=== PATIENT | male | born 1940 | race Caucasian/White ===

== ENCOUNTER → 2022-07-12 | Outpatient (CLI) | payer MEDICARE, OTHER | END | disposition home or self-care (01) | LOC: Rad HDHVI 09:52 | PROVIDERS: ATTEND Internal Medicine Cardiovascular Disease | DX: I08.3 Combined rheumatic disorders of mitral, aortic and tricuspid valves (principal); I10 Essential (primary) hypertension; R06.02 Shortness of breath | CPT/HCPCS: 93306 ==

== ENCOUNTER → 2022-08-19 | Outpatient (CLI) | payer MEDICARE, OTHER ==
[~2022-08-19] VITALS: Ht 172.7 cm; Wt 73.5 kg
[~2022-08-19] MED LIST: ADENOSINE 62 MG in GIVE UN-DILUTED 0 ML IV ONE; ADENOSINE 90 MG/30 ML INJ IV ONE
== END | disposition home or self-care (01) ==
LOC: Rad HDHVI 09:10
PROVIDERS: ATTEND Internal Medicine Cardiovascular Disease
DX: R00.1 Bradycardia, unspecified (principal); R07.89 Other chest pain; R06.02 Shortness of breath; I10 Essential (primary) hypertension; E11.9 Type 2 diabetes mellitus without complications; R42 Dizziness and giddiness; R53.83 Other fatigue; Z82.49 Family history of ischemic heart disease and other diseases of the circulatory system
CPT/HCPCS: 78452; 93005; 96374; 96375; A9500; J0153

== ENCOUNTER 2022-09-19 12:12 | Inpatient (IN) | payer MEDICARE, OTHER ==
[~2022-09-19] VITALS: Ht 167.6 cm; Wt 71.0 kg
[2022-09-19 12:56] LABS: Basophils # (auto) 0 10 ^3/uL (0-0.2); Basophils % (auto) 0.4 % (0.0-2.0); Eosinophils # (auto) 0.2 10 ^3/uL (0-0.8); Eosinophils % (auto) 2.3 % (0.0-7.0); Hemoglobin 15.3 g/dL (13.5-17.5); Lymphocytes % (auto) 19.7 % (10.0-50.0); Mean Corpuscular Hemoglobin 30.4 pg (28.0-32.0); Mean Corpuscular Hgb Conc. 33.9 g/dL (32.0-36.0); Mean Corpuscular Volume 89.7 fL (80.0-100.0); Monocytes # (auto) 0.7 10 ^3/uL (0-1.3); Monocytes % (auto) 6.6 % (0.0-12.0); Neutrophils # (auto) 7.3 10 ^3/uL (1.6-8.6); Nucleated Red Blood Cells % 0.2 %; Red Blood Cells 5.01 10^6/uL (4.5-5.90); Red Cell Distribution Width 13.9 % (11.8-14.3); White Blood Cell 10.3 10^3/uL (4.4-10.8)
[2022-09-19 13:11] LABS: Albumin 3.7 g/dL (3.4-5.0); BUN/Creatinine Ratio 20.9; Calcium 9.1 mg/dL (8.5-10.1); Magnesium 2.2 mg/dL (1.6-2.6); Potassium 4.5 mmol/L (3.5-5.1)
[2022-09-19 13:13] LABS: Bilirubin, Total 0.6 mg/dL (0.2-1.0); INR 1.03 (0.9-1.15); Partial Thromboplastin Time 31.3 sec (24.6-33.4); Total Protein 7.1 g/dL (6.4-8.2)
[2022-09-19] MEDS ORDERED: NITROGLYCERIN 0.4 MG SL TAB SL PRN (14:30)
[2022-09-19] MEDS ORDERED: ACETAMINOPHEN 325 MG TAB PO PRN (14:30)
[2022-09-19] MEDS ORDERED: HYDROcodone-ACET 5/325MG TAB PO PRN (14:30)
[2022-09-19] MEDS ORDERED: MORPHINE SULFATE INJ 2 MG/ml SYRG IV PRN ×2 (14:30)
[2022-09-19] MEDS ORDERED: NTG 0.1MG/HR TOPICAL PATCH TD ONE (15:15)
[2022-09-19] MEDS ORDERED: PANTOPRAZOLE 40 MG/10 ML VIAL INJ IV ONE (15:15)
[2022-09-19] MEDS ORDERED: DEXTROSE (50%) 50ML SYRG IV PRN (15:15)
[2022-09-19] MEDS: SODIUM CHLORIDE 0.9% 1,000 ML IV SCH (15:34)
[2022-09-19 15:39] LABS: Cholesterol 165 mg/dL (< 200)
[2022-09-19 15:42] LABS: HDL Cholesterol 33 mg/dL (40-59); LDL Cholesterol 115 mg/dL (< 100); Triglycerides 253 mg/dL (< 150)
[2022-09-19] MEDS: ACCU-CHEK COMFORT CURVE STRIP VI SCH ×2 (17:45→22:26)
[2022-09-19] MEDS: InsuLIN REG 1unit/0.01ml Soln (100units/ml) SC SCH ×3 (17:47→23:09)
[2022-09-19 18:37] LABS: Urine Blood Negative /uL (Negative); Urine Specific Gravity 1.016 (1.001-1.035)
[2022-09-19] MEDS: ATORVASTATIN 20 MG TAB PO SCH (22:22)
[2022-09-20] MEDS: SODIUM CHLORIDE 0.9% 1,000 ML IV SCH ×2 (02:08→10:30)
[2022-09-20 06:24] LABS: Basophils # (auto) 0 10 ^3/uL (0-0.2); Basophils % (auto) 0.4 % (0.0-2.0); Eosinophils # (auto) 0.3 10 ^3/uL (0-0.8); Eosinophils % (auto) 4.3 % (0.0-7.0); Hematocrit 39.3 % (41.0-53.0); Hemoglobin 13.7 g/dL (13.5-17.5); Lymphocytes # (auto) 2.4 10 ^3/uL (0.4-5.4); Lymphocytes % (auto) 30.9 % (10.0-50.0); Mean Corpuscular Hemoglobin 31.8 pg (28.0-32.0); Mean Corpuscular Hgb Conc. 34.9 g/dL (32.0-36.0); Monocytes # (auto) 0.7 10 ^3/uL (0-1.3); Monocytes % (auto) 9.4 % (0.0-12.0); Neutrophils # (auto) 4.3 10 ^3/uL (1.6-8.6); Nucleated Red Blood Cells % 0.1 %; Red Blood Cells 4.32 10^6/uL (4.5-5.90); Red Cell Distribution Width 14.1 % (11.8-14.3); White Blood Cell 7.8 10^3/uL (4.4-10.8)
[2022-09-20] MEDS: ACCU-CHEK COMFORT CURVE STRIP VI SCH ×3 (06:34→22:47)
[2022-09-20] MEDS: InsuLIN REG 1unit/0.01ml Soln (100units/ml) SC SCH ×4 (06:34→22:47)
[2022-09-20 06:37] LABS: Potassium 4.4 mmol/L (3.5-5.1)
[2022-09-20 06:46] LABS: Albumin 3.4 g/dL (3.4-5.0); BUN/Creatinine Ratio 17.4; Bilirubin, Total 0.3 mg/dL (0.2-1.0); Calcium 8.7 mg/dL (8.5-10.1); Total Protein 6.3 g/dL (6.4-8.2)
[2022-09-20] MEDS: ASPirin 81 mg TAB PO SCH (09:44)
[2022-09-20] MEDS ORDERED: ENOXAPARIN SOD 40 MG/0.4 ML SYRINGE SC SCH (10:00)
[2022-09-20] MEDS ORDERED: PANTOPRAZOLE 40 MG/10 ML VIAL INJ IV SCH (10:00)
[2022-09-20] MEDS ORDERED: ATROPINE SULF 1 MG/10ml SYR IV ONE (14:15)
[2022-09-20 17:32] VITALS: BP 106/65
[2022-09-20 22:00] VITALS: BP 143/78
[2022-09-20] MEDS: ATORVASTATIN 20 MG TAB PO SCH (22:59)
[2022-09-20] MEDS: CARBIDOPA W LEVODOPA 25/100mg TABLET PO SCH (23:18)
[2022-09-21] VITALS (9 sets, daily range): BP systolic 103–180; BP diastolic 62–92
[2022-09-21] MEDS ORDERED: ESCI10TA PO (00:04)
[2022-09-21] MEDS ORDERED: ZONI100C43 PO (00:04)
[2022-09-21] MEDS ORDERED: CARB25TA79 PO (00:04)
[2022-09-21] MEDS ORDERED: METF-370 PO (00:04)
[2022-09-21] MEDS ORDERED: ALLO100T PO (00:04)
[2022-09-21] MEDS ORDERED: RASA1TAB4 PO (00:04)
[2022-09-21] MEDS ORDERED: PRAM0.5T2 PO (00:04)
[2022-09-21] MEDS: CARBIDOPA W LEVODOPA 25/100mg TABLET PO SCH ×2 (06:00→14:34)
[2022-09-21] MEDS: InsuLIN REG 1unit/0.01ml Soln (100units/ml) SC SCH ×2 (06:11→11:30)
[2022-09-21] MEDS: ACCU-CHEK COMFORT CURVE STRIP VI SCH ×2 (06:11→11:30)
[2022-09-21] MEDS ORDERED: ALLOPURINOL 100 MG TAB PO SCH (10:00)
[2022-09-21] MEDS ORDERED: RASAGILINE 1 MG PO SCH (10:00)
[2022-09-21] MEDS ORDERED: ZONISAMIDE 100 MG PO SCH (10:00)
[2022-09-21] MEDS: ASPirin 81 mg TAB PO SCH (10:00)
[2022-09-21] MEDS ORDERED: fentaNYL CITRATE 100 MCG/2 ML VL ONE ×2 (10:10→11:02)
[2022-09-21] MEDS ORDERED: MIDAZOLAM HCL 2MG/2ML 2ml VIAL (1mg/ml) ONE ×2 (10:10→11:03)
[2022-09-21] MEDS ORDERED: ANGIOMAX 250 MG VIAL IV ONE (10:10)
[2022-09-21] MEDS ORDERED: SODIUM CHL 0.9% 0 ML ONE (10:10)
[2022-09-21] MEDS ORDERED: LIDOCAINE 2%HCL (LOCAL ANESTH.) INJ 10ml MDV ONE ×2 (10:21→11:03)
[2022-09-21] MEDS ORDERED: CLOP75TA28 PO (10:56)
[2022-09-21] MEDS ORDERED: ATOR20TA50 PO (11:00)
== END 2022-09-21 15:10 | disposition home or self-care (01) | DRG 287 ==
LOC: ER 12:12 → EDBD 12:12 → TELE 15:02 → TELE-CENTR 09-20 16:30 → TELE-E-ADS 09-20 17:42 → TELE-CENTR 09-20 19:50
PROVIDERS: ADMIT Registered Nurse; ATTEND Internal Medicine
PROC: 4A023N7 Measurement of Cardiac Sampling and Pressure, Left Heart, Percutaneous Approach (ICD-10-PCS; principal; 2022-09-21)
PROC: B2111ZZ Fluoroscopy of Multiple Coronary Arteries using Low Osmolar Contrast (ICD-10-PCS; 2022-09-21)
PROC: B2151ZZ Fluoroscopy of Left Heart using Low Osmolar Contrast (ICD-10-PCS; 2022-09-21)
PROC: B41F1ZZ Fluoroscopy of Right Lower Extremity Arteries using Low Osmolar Contrast (ICD-10-PCS; 2022-09-21)
DX: R07.89 Other chest pain (principal); E11.9 Type 2 diabetes mellitus without complications; G20 Parkinson's disease; E78.5 Hyperlipidemia, unspecified; Z20.822 Contact with and (suspected) exposure to COVID-19; I10 Essential (primary) hypertension; M10.9 Gout, unspecified; Z79.02 Long term (current) use of antithrombotics/antiplatelets; Z79.899 Other long term (current) drug therapy; Z90.49 Acquired absence of other specified parts of digestive tract
CPT/HCPCS: 36415; 71045; 75710; 80053; 80061; 81003; 82962; 83036; 83735; 83880; 84443; 84484; 85025; 85610; 85730; 86850; 86900; 86901; 87426; 93005; 93458; 99152; C9113; G0378; J1815; J2001; J2250

== ENCOUNTER → 2022-10-25 | Outpatient (CLI) | payer MEDICARE, OTHER ==
[~2022-10-25] MED LIST changes: -ADENOSINE 62 MG in GIVE UN-DILUTED 0 ML IV ONE; -ADENOSINE 90 MG/30 ML INJ IV ONE; +ALLO100T PO; +ATOR20TA50 PO; +CARB25TA79 PO; +CLOP75TA28 PO; +ESCI10TA PO; +METF-370 PO; +PRAM0.5T2 PO; +RASA1TAB4 PO; +ZONI100C43 PO
[2022-10-25 10:10] VITALS: BP 179/98
[2022-10-25 10:57] VITALS: BP 183/80
== END | disposition home or self-care (01) ==
LOC: Rad HDHVI 09:53
PROVIDERS: ATTEND Internal Medicine Cardiovascular Disease
DX: Z01.818 Encounter for other preprocedural examination (principal); R07.9 Chest pain, unspecified; R00.1 Bradycardia, unspecified
CPT/HCPCS: 71046; 93005; G0463

== ENCOUNTER 2022-10-28 06:57 | Day surgery (SDC) | payer MEDICARE, OTHER ==
[2022-10-25 13:23] LABS: Basophils # (auto) 0 10 ^3/uL (0-0.2); Basophils % (auto) 0.4 % (0.0-2.0); Eosinophils # (auto) 0.4 10 ^3/uL (0-0.8); Eosinophils % (auto) 3.9 % (0.0-7.0); Hematocrit 39.4 % (41.0-53.0); Hemoglobin 13.6 g/dL (13.5-17.5); Lymphocytes # (auto) 2.3 10 ^3/uL (0.4-5.4); Mean Corpuscular Hemoglobin 30.2 pg (28.0-32.0); Mean Corpuscular Hgb Conc. 34.6 g/dL (32.0-36.0); Mean Corpuscular Volume 87.4 fL (80.0-100.0); Monocytes # (auto) 0.9 10 ^3/uL (0-1.3); Monocytes % (auto) 9.3 % (0.0-12.0); Neutrophils # (auto) 6.1 10 ^3/uL (1.6-8.6); Neutrophils % (auto) 62.4 % (37.0-80.0); Nucleated Red Blood Cells % 0.1 %; Red Blood Cells 4.51 10^6/uL (4.5-5.90); Red Cell Distribution Width 14.2 % (11.8-14.3); White Blood Cell 9.7 10^3/uL (4.4-10.8)
[2022-10-25 13:46] LABS: BUN/Creatinine Ratio 17.2 (10.0-20.0); Calcium 9.1 mg/dL (8.5-10.1); Potassium 4.6 mmol/L (3.5-5.1)
[2022-10-25 13:50] LABS: INR 1.08 (0.9-1.15)
[~2022-10-28] VITALS: Ht 172.7 cm; Wt 70.8 kg
[2022-10-28] MEDS ORDERED: VANCOMYCIN 1GM/250ML 250 ML IV ONE (08:00)
[2022-10-28] MEDS ORDERED: LIDOCAINE 2%HCL (LOCAL ANESTH.) INJ 20ML MDV ONE (09:52)
[2022-10-28] MEDS ORDERED: MIDAZOLAM HCL 2MG/2ML 2ml VIAL (1mg/ml) ONE (09:52)
[2022-10-28] MEDS ORDERED: fentaNYL CITRATE 100 MCG/2 ML VL ONE (09:52)
[2022-10-28] MEDS ORDERED: VANCOMYCIN HCL 1000 MG VL ONE (09:56)
[2022-10-28 10:50] VITALS: BP 123/76
[2022-10-28 11:10] VITALS: BP 138/83
[2022-10-28 11:25] VITALS: BP 135/80
[2022-10-28 11:40] VITALS: BP 140/84
[2022-10-28 11:55] VITALS: BP 156/91
[2022-10-28 12:25] VITALS: BP 161/96
== END 2022-10-28 13:12 | disposition home or self-care (01) ==
LOC: CATH 06:57
PROVIDERS: ATTEND Internal Medicine Cardiovascular Disease
DX: I49.5 Sick sinus syndrome (principal); I10 Essential (primary) hypertension; E78.5 Hyperlipidemia, unspecified; Z79.899 Other long term (current) drug therapy; Z20.822 Contact with and (suspected) exposure to COVID-19
CPT/HCPCS: 33208; 71045; 93005; C1785; C1892; C1894; C1898; J2250; J3010; J3370; 36415; 80048; 85025; 85610; 85730; 99152; 99153

== ENCOUNTER → 2022-11-02 | Outpatient (CLI) | payer MEDICARE, OTHER | END | disposition home or self-care (01) | LOC: Rad HDHVI 10:06 | PROVIDERS: ATTEND Internal Medicine Cardiovascular Disease | DX: R07.9 Chest pain, unspecified (principal); Z95.0 Presence of cardiac pacemaker | CPT/HCPCS: 71046 ==

== ENCOUNTER 2023-01-24 13:45 | Inpatient (IN) | payer MEDICARE, OTHER ==
[~2023-01-24] VITALS: Ht 175.3 cm; Wt 51.9 kg
[2023-01-24 14:13] LABS: Basophils # (auto) 0 10 ^3/uL (0-0.2); Basophils % (auto) 0.3 % (0.0-2.0); Eosinophils # (auto) 0.2 10 ^3/uL (0-0.8); Eosinophils % (auto) 1.8 % (0.0-7.0); Hematocrit 41.2 % (41.0-53.0); Hemoglobin 13.8 g/dL (13.5-17.5); Lymphocytes # (auto) 1.8 10 ^3/uL (0.4-5.4); Lymphocytes % (auto) 15.3 % (10.0-50.0); Mean Corpuscular Hemoglobin 29.6 pg (28.0-32.0); Mean Corpuscular Hgb Conc. 33.6 g/dL (32.0-36.0); Mean Corpuscular Volume 88.2 fL (80.0-100.0); Monocytes # (auto) 0.9 10 ^3/uL (0-1.3); Monocytes % (auto) 7.3 % (0.0-12.0); Neutrophils # (auto) 9.1 10 ^3/uL (1.6-8.6); Neutrophils % (auto) 75.3 % (37.0-80.0); Nucleated Red Blood Cells % 0.1 %; Red Blood Cells 4.67 10^6/uL (4.5-5.90); Red Cell Distribution Width 13.7 % (11.8-14.3); White Blood Cell 12.1 10^3/uL (4.4-10.8)
[2023-01-24 14:26] LABS: Albumin 3.6 g/dL (3.4-5.0); Calcium 9.1 mg/dL (8.5-10.1); Magnesium 2.4 mg/dL (1.6-2.6); Potassium 4.3 mmol/L (3.5-5.1)
[2023-01-24 14:28] LABS: INR 1.09 (0.9-1.15); Partial Thromboplastin Time 30.2 SEC (24.5-34.5)
[2023-01-24 14:29] LABS: BUN/Creatinine Ratio 16.3 (10.0-20.0); Bilirubin, Total 0.7 mg/dL (0.2-1.0)
[2023-01-24] MEDS ORDERED: MORPHINE SULFATE INJ 2 MG/ml SYRG IV PRN (19:15)
[2023-01-24] MEDS ORDERED: cefTRIAXone 1GM/50ML D5W 50 ML IV ONE (19:15)
[2023-01-24] MEDS ORDERED: NITROGLYCERIN 0.4 MG SL TAB SL PRN (19:15)
[2023-01-24] MEDS ORDERED: ACETAMINOPHEN 325 MG TAB PO PRN (19:30)
[2023-01-24] MEDS ORDERED: DEXTROSE (50%) 50ML SYRG IV PRN (19:30)
[2023-01-24] MEDS ORDERED: hydrALAZINE HCL 20 MG/ML VL IV ONE (21:00)
[2023-01-24] MEDS: ACCU-CHEK COMFORT CURVE STRIP VI SCH (23:30)
[2023-01-24] MEDS: ATORVASTATIN 20 MG TAB PO SCH (23:41)
[2023-01-24] MEDS: CARBIDOPA W LEVODOPA 25/100mg TABLET PO SCH (23:46)
[2023-01-24] MEDS: InsuLIN REG 1unit/0.01ml Soln (100units/ml) SC SCH (23:48)
[2023-01-25 06:24] LABS: Basophils # (auto) 0.1 10 ^3/uL (0-0.2); Basophils % (auto) 0.6 % (0.0-2.0); Eosinophils # (auto) 0.3 10 ^3/uL (0-0.8); Eosinophils % (auto) 2.3 % (0.0-7.0); Hematocrit 40.6 % (41.0-53.0); Hemoglobin 14.2 g/dL (13.5-17.5); Lymphocytes % (auto) 18.3 % (10.0-50.0); Mean Corpuscular Hemoglobin 30.2 pg (28.0-32.0); Mean Corpuscular Hgb Conc. 34.9 g/dL (32.0-36.0); Mean Corpuscular Volume 86.5 fL (80.0-100.0); Monocytes # (auto) 0.8 10 ^3/uL (0-1.3); Monocytes % (auto) 7.3 % (0.0-12.0); Neutrophils # (auto) 7.8 10 ^3/uL (1.6-8.6); Neutrophils % (auto) 71.5 % (37.0-80.0); Nucleated Red Blood Cells % 0.1 %; Red Blood Cells 4.69 10^6/uL (4.5-5.90); White Blood Cell 10.9 10^3/uL (4.4-10.8)
[2023-01-25 06:41] LABS: Potassium 3.8 mmol/L (3.5-5.1)
[2023-01-25 06:50] LABS: Albumin 3.4 g/dL (3.4-5.0); BUN/Creatinine Ratio 22.2 (10.0-20.0); Bilirubin, Total 0.8 mg/dL (0.2-1.0); Calcium 8.9 mg/dL (8.5-10.1); Total Protein 7.1 g/dL (6.4-8.2)
[2023-01-25] MEDS: CARBIDOPA W LEVODOPA 25/100mg TABLET PO SCH ×3 (06:51→23:44)
[2023-01-25] MEDS: ACCU-CHEK COMFORT CURVE STRIP VI SCH ×4 (06:51→23:05)
[2023-01-25] MEDS: InsuLIN REG 1unit/0.01ml Soln (100units/ml) SC SCH ×4 (06:52→22:00)
[2023-01-25] MEDS ORDERED: cefTRIAXone 1GM/50ML D5W 50 ML IV SCH (09:00)
[2023-01-25] MEDS: CLOPIDOGREL BISULFATE 75 MG TAB PO SCH (09:49)
[2023-01-25] MEDS: ALLOPURINOL 100 MG TAB PO SCH (09:49)
[2023-01-25] MEDS ORDERED: FAMOTIDINE 20 MG TAB PO SCH (10:00)
[2023-01-25 12:46] VITALS: BP_SYST 161; BP_SYST 89; BP_DIAS 46; BP_DIAS 91
[2023-01-25 12:55] VITALS: BP 165/87
[2023-01-25 16:53] VITALS: BP 163/94
[2023-01-25] MEDS: cloNIDine HCL 0.1 MG TAB PO PRN (17:54)
[2023-01-25 21:50] VITALS: BP 136/79
[2023-01-25] MEDS: ATORVASTATIN 20 MG TAB PO SCH (23:42)
[2023-01-26 04:56] VITALS: BP 162/88
[2023-01-26] MEDS: CARBIDOPA W LEVODOPA 25/100mg TABLET PO SCH ×3 (06:19→21:34)
[2023-01-26] MEDS: InsuLIN REG 1unit/0.01ml Soln (100units/ml) SC SCH ×4 (06:29→21:43)
[2023-01-26] MEDS: ACCU-CHEK COMFORT CURVE STRIP VI SCH ×4 (06:29→21:39)
[2023-01-26] MEDS: CLOPIDOGREL BISULFATE 75 MG TAB PO SCH (10:32)
[2023-01-26] MEDS: ALLOPURINOL 100 MG TAB PO SCH (10:32)
[2023-01-26 13:00] VITALS: BP 129/77
[2023-01-26 17:14] VITALS: BP 149/84
[2023-01-26] MEDS: ATORVASTATIN 20 MG TAB PO SCH (21:32)
[2023-01-27 05:00] VITALS: BP 130/87
[2023-01-27] MEDS: CARBIDOPA W LEVODOPA 25/100mg TABLET PO SCH ×2 (06:02→14:45)
[2023-01-27] MEDS: ACCU-CHEK COMFORT CURVE STRIP VI SCH ×2 (06:02→11:56)
[2023-01-27] MEDS: InsuLIN REG 1unit/0.01ml Soln (100units/ml) SC SCH ×2 (06:12→11:30)
[2023-01-27 08:00] VITALS: BP 167/89
[2023-01-27] MEDS: ALLOPURINOL 100 MG TAB PO SCH (08:47)
[2023-01-27] MEDS: CLOPIDOGREL BISULFATE 75 MG TAB PO SCH (08:47)
[2023-01-27 09:00] VITALS: BP 167/89
[2023-01-27] MEDS: cloNIDine HCL 0.1 MG TAB PO PRN (09:23)
[2023-01-27 12:51] VITALS: BP 131/80
== END 2023-01-27 15:52 | disposition home or self-care (01) | DRG 313 ==
LOC: EDBD 13:45 → ER 13:45 → TELE 19:07 → TELE-WESTW 01-25 12:02
PROVIDERS: ADMIT Nurse Practitioner Family; ATTEND Internal Medicine Cardiovascular Disease
DX: R07.89 Other chest pain (principal); N39.0 Urinary tract infection, site not specified; G20 Parkinson's disease; E11.65 Type 2 diabetes mellitus with hyperglycemia; M10.9 Gout, unspecified; E78.00 Pure hypercholesterolemia, unspecified; I25.10 Atherosclerotic heart disease of native coronary artery without angina pectoris; I49.5 Sick sinus syndrome; E78.5 Hyperlipidemia, unspecified; Z95.0 Presence of cardiac pacemaker; Z90.49 Acquired absence of other specified parts of digestive tract; Z98.49 Cataract extraction status, unspecified eye; Z82.49 Family history of ischemic heart disease and other diseases of the circulatory system; Z83.438 Family history of other disorder of lipoprotein metabolism and other lipidemia
CPT/HCPCS: 36415; 70450; 71045; 80053; 82962; 83735; 83880; 84484; 85025; 85379; 85610; 85730; 93005; G0378; J0696; J1815

== ENCOUNTER → 2023-02-22 | Outpatient (CLI) | payer MEDICARE, OTHER | END | disposition home or self-care (01) | LOC: Rad HDHVI 08:56 | PROVIDERS: ATTEND Internal Medicine Cardiovascular Disease | DX: I08.3 Combined rheumatic disorders of mitral, aortic and tricuspid valves (principal); R07.9 Chest pain, unspecified; I10 Essential (primary) hypertension | CPT/HCPCS: 93306 ==

== ENCOUNTER → 2023-04-27 | Outpatient (CLI) | payer MEDICARE, OTHER ==
[~2023-04-27] MED LIST changes: +FLU01T PO; +MIDO10TA10 PO; +RIVA10TA PO
[2023-04-27 15:05] VITALS: BP 160/80; PULSE 65; RESP 16; O2SAT 97
[2023-04-27 15:13] VITALS: BP 171/85; PULSE 60; RESP 16; O2SAT 97
== END | disposition home or self-care (01) ==
LOC: CHF HDHVI 14:55
PROVIDERS: ATTEND Internal Medicine Cardiovascular Disease
DX: Z01.818 Encounter for other preprocedural examination (principal); R94.31 Abnormal electrocardiogram [ECG] [EKG]; I11.0 Hypertensive heart disease with heart failure; I50.43 Acute on chronic combined systolic (congestive) and diastolic (congestive) heart failure; I48.91 Unspecified atrial fibrillation; I25.5 Ischemic cardiomyopathy
CPT/HCPCS: 93005; G0463

== ENCOUNTER 2023-04-28 07:40 | Day surgery (SDC) | payer MEDICARE, OTHER ==
[2023-04-27 15:57] LABS: Basophils # (auto) 0.1 10 ^3/uL (0-0.2); Basophils % (auto) 0.4 % (0.0-2.0); Eosinophils # (auto) 0.2 10 ^3/uL (0-0.8); Eosinophils % (auto) 1.9 % (0.0-7.0); Hematocrit 39.4 % (41.0-53.0); Hemoglobin 13.6 g/dL (13.5-17.5); Lymphocytes # (auto) 1.5 10 ^3/uL (0.4-5.4); Lymphocytes % (auto) 12.8 % (10.0-50.0); Mean Corpuscular Hgb Conc. 34.4 g/dL (32.0-36.0); Mean Corpuscular Volume 87.2 fL (80.0-100.0); Monocytes # (auto) 0.8 10 ^3/uL (0-1.3); Monocytes % (auto) 6.8 % (0.0-12.0); Neutrophils # (auto) 9.3 10 ^3/uL (1.6-8.6); Neutrophils % (auto) 78.1 % (37.0-80.0); Red Blood Cells 4.52 10^6/uL (4.5-5.90); Red Cell Distribution Width 13.5 % (11.8-14.3); White Blood Cell 11.9 10^3/uL (4.4-10.8)
[2023-04-27 16:11] LABS: INR 1.28 (0.9-1.15); Partial Thromboplastin Time 41.3 SEC (24.5-34.5); Prothrombin Time 13.2 sec (9.3-11.8)
[2023-04-27 16:18] LABS: Chloride 105 mmol/L (98-107); Potassium 3.7 mmol/L (3.5-5.1); Sodium 140 mmol/L (136-145)
[2023-04-27 16:19] LABS: Anion Gap 6 (5-15); Carbon Dioxide 29 mmol/L (20-30)
[2023-04-27 16:20] LABS: Calcium 9.2 mg/dL (8.5-10.1)
[2023-04-27 16:24] LABS: Glucose 150 mg/dL (74-106)
[2023-04-27 16:25] LABS: BUN/Creatinine Ratio 12.2 (10.0-20.0); Blood Urea Nitrogen 10 mg/dL (9-23)
[~2023-04-28] VITALS: Ht 172.7 cm; Wt 71.2 kg
[2023-04-28] VITALS (7 sets, daily range): BP systolic 125–161; BP diastolic 78–91; PULSE 60–65; RESP 10–16; TEMP 97.1; O2SAT 93–96
[2023-04-28] MEDS ORDERED: LIDOCAINE 2%HCL (LOCAL ANESTH.) INJ 20ML MDV ONE (12:10)
[2023-04-28] MEDS ORDERED: IOHEXOL 350 MG/ML 100ML IJ ONE (12:10)
[2023-04-28] MEDS ORDERED: MIDAZOLAM HCL 2MG/2ML 2ml VIAL (1mg/ml) ONE (12:19)
[2023-04-28] MEDS ORDERED: fentaNYL CITRATE 100 MCG/2 ML VL ONE (12:19)
[2023-04-28] MEDS ORDERED: ANGIOMAX 250 MG VIAL IV ONE (12:19)
[2023-04-28] MEDS ORDERED: SODIUM CHL 0.9% 0 ML ONE (12:20)
[2023-04-28] MEDS ORDERED: hydrALAZINE HCL 20 MG/ML VL ONE (12:44)
[2023-04-28] MEDS ORDERED: ENALAPRILAT 1.25 MG/ML-1ML VIAL IV ONE ×2 (12:44→12:46)
== END 2023-04-28 15:44 | disposition home or self-care (01) ==
LOC: CATH 07:40
PROVIDERS: ATTEND Internal Medicine Cardiovascular Disease
DX: R94.39 Abnormal result of other cardiovascular function study (principal); I10 Essential (primary) hypertension; E78.5 Hyperlipidemia, unspecified; I49.5 Sick sinus syndrome; Z87.891 Personal history of nicotine dependence; E11.40 Type 2 diabetes mellitus with diabetic neuropathy, unspecified; E11.22 Type 2 diabetes mellitus with diabetic chronic kidney disease; I48.0 Paroxysmal atrial fibrillation; Z79.01 Long term (current) use of anticoagulants; Z79.899 Other long term (current) drug therapy; Z79.84 Long term (current) use of oral hypoglycemic drugs; R07.89 Other chest pain; Z82.49 Family history of ischemic heart disease and other diseases of the circulatory system; R06.02 Shortness of breath
CPT/HCPCS: 36415; 80048; 85025; 85610; 85730; 93458; C1894; J0360; J1644; J2250; J3010; J7030; Q9967; 99152

== ENCOUNTER 2023-09-26 14:22 | Emergency (ER) | payer MEDICARE, OTHER ==
[~2023-09-26] VITALS: Ht 175.3 cm; Wt 72.9 kg
[2023-09-26 14:42] VITALS: BP 187/100; PULSE 71; RESP 20; TEMP 97.2; O2SAT 97
[2023-09-26] MEDS ORDERED: BACIOIN15 TOP (19:24)
== END 2023-09-26 19:30 | disposition home or self-care (01) ==
LOC: ER 14:22
DX: S60.416A Abrasion of right little finger, initial encounter (principal); E11.9 Type 2 diabetes mellitus without complications; I10 Essential (primary) hypertension; Z90.49 Acquired absence of other specified parts of digestive tract; W26.8XXA Contact with other sharp object(s), not elsewhere classified, initial encounter; Y93.89 Activity, other specified; Y92.89 Other specified places as the place of occurrence of the external cause; Y99.8 Other external cause status

== ENCOUNTER 2023-11-10 09:54 | Inpatient (IN) | payer MEDICARE, OTHER ==
[~2023-11-10] VITALS: Ht 172.7 cm; Wt 73.0 kg
[2023-11-10 10:48] LABS: Basophils # (auto) 0 10 ^3/uL (0-0.2); Basophils % (auto) 0.3 % (0.0-2.0); Eosinophils # (auto) 0.2 10 ^3/uL (0-0.8); Hematocrit 39.1 % (41.0-53.0); Hemoglobin 13.2 g/dL (13.5-17.5); Lymphocytes # (auto) 1.2 10 ^3/uL (0.4-5.4); Lymphocytes % (auto) 11.7 % (10.0-50.0); Mean Corpuscular Hemoglobin 28.9 pg (28.0-32.0); Mean Corpuscular Hgb Conc. 33.9 g/dL (32.0-36.0); Mean Corpuscular Volume 85.4 fL (80.0-100.0); Monocytes # (auto) 0.7 10 ^3/uL (0-1.3); Monocytes % (auto) 6.5 % (0.0-12.0); Neutrophils # (auto) 8.3 10 ^3/uL (1.6-8.6); Neutrophils % (auto) 79.5 % (37.0-80.0); Red Blood Cells 4.58 10^6/uL (4.5-5.90); Red Cell Distribution Width 14.2 % (11.8-14.3); White Blood Cell 10.4 10^3/uL (4.4-10.8)
[2023-11-10 11:31] LABS: Alanine Aminotransferase 11 U/L (7-40); Albumin 4.1 g/dL (3.2-4.8); Alkaline Phosphatase 98 U/L (46-116); Anion Gap 11 (5-15); Aspartate Aminotransferase 29 U/L (13-40); BUN/Creatinine Ratio 24.1 (10.0-20.0); Blood Urea Nitrogen 20 mg/dL (9-23); Calcium 9.1 mg/dL (8.5-10.1); Carbon Dioxide 23 mmol/L (20-30); Chloride 107 mmol/L (98-107); Glucose 125 mg/dL (74-106); Potassium 3.5 mmol/L (3.5-5.1); Sodium 141 mmol/L (136-145); Total Protein 6.4 g/dL (5.7-8.2)
[2023-11-10] MEDS ORDERED: MORPHINE SULFATE INJ 2 MG/ml SYRG IV PRN (12:45)
[2023-11-10] MEDS ORDERED: NITROGLYCERIN 0.4 MG SL TAB SL PRN (12:45)
[2023-11-10] MEDS ORDERED: DEXTROSE (50%) 50ML SYRG IV PRN (12:45)
[2023-11-10 12:58] LABS: Triglycerides 66 mg/dL (< 150)
[2023-11-10 12:59] LABS: LDL Cholesterol 53 mg/dL (< 100)
[2023-11-10 13:00] LABS: Cholesterol 88 mg/dL (< 200); HDL Cholesterol 25 mg/dL (40-59)
[2023-11-10 13:10] LABS: INR 1.58 (0.9-1.15); Prothrombin Time 16.1 sec (9.3-11.8)
[2023-11-10 15:50] LABS: Urine Bacteria None Seen /hpf (None Seen)
[2023-11-10] MEDS: SODIUM CHLORIDE 0.9% 1,000 ML IV SCH (15:51)
[2023-11-10 15:52] VITALS: PULSE 65; RESP 16; O2SAT 98
[2023-11-10 15:59] LABS: Urine Blood Negative /uL (Negative); Urine Clarity Turbid (Clear); Urine Color Light-Yellow (Yellow); Urine Protein, UAD Negative (Negative); Urine Specific Gravity 1.015 (1.001-1.035); Urine Urobilinogen Normal (Negative); Urine WBC 20 /hpf (0 - 3)
[2023-11-10 18:48] VITALS: PULSE 80; RESP 18; O2SAT 96
[2023-11-10] MEDS: ACCU-CHEK COMFORT CURVE STRIP VI SCH (18:52)
[2023-11-10] MEDS: hydrALAZINE HCL 20 MG/ML VL IV SCH (18:52)
[2023-11-10] MEDS: InsuLIN REG 1unit/0.01ml Soln (100units/ml) SC SCH (18:52)
[2023-11-10 19:43] VITALS: BP 135/76; PULSE 69
[2023-11-10 20:00] VITALS: BP_SYST 135; BP_SYST 180; BP_DIAS 105; BP_DIAS 76; PULSE 69; PULSE 71; PULSE 73; RESP 18; TEMP 97.5; O2SAT 96; O2SAT 98
[2023-11-10 21:00] VITALS: BP 156/90; PULSE 75; RESP 18; TEMP 97.5; O2SAT 98
[2023-11-10] MEDS: ATORVASTATIN 20 MG TAB PO SCH (21:27)
[2023-11-11 01:00] VITALS: BP 159/90; PULSE 70; RESP 18; TEMP 97.6; O2SAT 95
[2023-11-11 05:00] VITALS: BP 133/72; PULSE 78; RESP 18; TEMP 97.7; O2SAT 95
[2023-11-11 06:39] LABS: Basophils # (auto) 0 10 ^3/uL (0-0.2); Basophils % (auto) 0.2 % (0.0-2.0); Eosinophils # (auto) 0.2 10 ^3/uL (0-0.8); Hematocrit 39.4 % (41.0-53.0); Hemoglobin 13.3 g/dL (13.5-17.5); Lymphocytes # (auto) 1.1 10 ^3/uL (0.4-5.4); Lymphocytes % (auto) 10.1 % (10.0-50.0); Mean Corpuscular Hgb Conc. 33.9 g/dL (32.0-36.0); Mean Corpuscular Volume 85.5 fL (80.0-100.0); Monocytes # (auto) 0.7 10 ^3/uL (0-1.3); Monocytes % (auto) 6.5 % (0.0-12.0); Neutrophils % (auto) 81.2 % (37.0-80.0); Red Blood Cells 4.61 10^6/uL (4.5-5.90); Red Cell Distribution Width 14.1 % (11.8-14.3); White Blood Cell 11.1 10^3/uL (4.4-10.8)
[2023-11-11 06:59] LABS: Alanine Aminotransferase 18 U/L (7-40); Albumin 3.9 g/dL (3.2-4.8); Alkaline Phosphatase 99 U/L (46-116); Anion Gap 9 (5-15); Aspartate Aminotransferase 28 U/L (13-40); Blood Urea Nitrogen 10 mg/dL (9-23); Calcium 8.9 mg/dL (8.5-10.1); Carbon Dioxide 23 mmol/L (20-30); Chloride 110 mmol/L (98-107); Glucose 121 mg/dL (74-106); Potassium 3.5 mmol/L (3.5-5.1); Sodium 142 mmol/L (136-145)
[2023-11-11 07:00] LABS: Bilirubin, Total 1.2 mg/dL (0.2-1.0); Total Protein 6.5 g/dL (5.7-8.2)
[2023-11-11 08:00] VITALS: BP 139/81; PULSE 75; PULSE 79; RESP 18; TEMP 98.1; O2SAT 92
[2023-11-11] MEDS: ACETAMINOPHEN 325 MG TAB PO PRN (08:54)
[2023-11-11] MEDS: ALLOPURINOL 100 MG TAB PO SCH (08:54)
[2023-11-11] MEDS: FLUDROCORTISONE ACETATE 0.1 MG TAB PO SCH (08:54)
[2023-11-11] MEDS: CLOPIDOGREL BISULFATE 75 MG TAB PO SCH (08:54)
[2023-11-11] MEDS: RIVAROXABAN 10 MG TAB PO SCH (08:54)
[2023-11-11] MEDS ORDERED: MIDODRINE HCL 10 MG TAB PO SCH (10:00)
[2023-11-11 12:00] VITALS: BP 126/89; PULSE 79; RESP 18; TEMP 97.9; O2SAT 94
[2023-11-11] MEDS ORDERED: MIDO2.5T3 PO (13:46)
[2023-11-11 14:48] VITALS: BP 136/89; PULSE 79; RESP 18; TEMP 97.9; O2SAT 94
== END 2023-11-11 15:18 | disposition home or self-care (01) | DRG 309 ==
LOC: EDBD 09:54 → ER 09:54 → TELE 12:38 → TELE-EAST 18:20
PROVIDERS: ADMIT Nurse Practitioner Family; ATTEND Internal Medicine Geriatric Medicine
DX: I49.5 Sick sinus syndrome (principal); D68.59 Other primary thrombophilia; I48.91 Unspecified atrial fibrillation; E11.9 Type 2 diabetes mellitus without complications; I10 Essential (primary) hypertension; G20.A1 Parkinson's disease without dyskinesia, without mention of fluctuations; M10.9 Gout, unspecified; Z79.899 Other long term (current) drug therapy; Z90.49 Acquired absence of other specified parts of digestive tract; Z79.01 Long term (current) use of anticoagulants
CPT/HCPCS: 36415; 71045; 80053; 80061; 81001; 82962; 83036; 84443; 84484; 85025; 85610; 93306; 99291; G0378; J1815

== ENCOUNTER → 2024-06-13 | Outpatient (CLI) | payer MEDICARE, OTHER ==
[~2024-06-13] MED LIST changes: -MIDO10TA10 PO; +MIDO2.5T3 PO
--- NOTE | 2024-06-13 12:40 | DVH ---
XY CHEST TWO VIEWS ROUTINE CLINICAL HISTORY: SOB COMPARISON: XY CHEST TWO VIEWS ROUTINE on DOS: 11/02/22, XY CHEST TWO VIEWS ROUTINE on DOS: 10/25/22, XY CHEST PORTABLE on DOS: 11/10/23 TECHNIQUE: Single frontal view of the chest was obtained FINDINGS: Lines and Tubes: Left-sided pacemaker Lungs: No focal consolidation. Pleura: No effusion. No pneumothorax. Cardiomediastinal contours: Cardiomegaly Bones: No acute osseous abnormality. IMPRESSION: 1. Cardiomegaly with mild CHF.
== END | disposition home or self-care (01) ==
LOC: Rad HDHVI 11:51
PROVIDERS: ATTEND Internal Medicine Cardiovascular Disease
DX: R06.02 Shortness of breath (principal); I51.7 Cardiomegaly; I50.9 Heart failure, unspecified
CPT/HCPCS: 71046

== ENCOUNTER → 2024-06-15 | Outpatient (CLI) | payer MEDICARE, OTHER ==
--- NOTE | 2024-06-25 13:35 | DVHSR ---
APPROVED REPORT EXAM: Two-dimensional and M-mode echocardiogram with Doppler and color Doppler. Surgery/Intervention Pacemaker: DIMENSIONS LVDd4.6 (3.8-5.7cm)LA (2D)3.7 (1.9-4.0cm)Aortic Root3.2 (2.0-3.7cm) LVDs3.2 (2.5-4.0cm)LA (MM) (1.9-4.0cm)Aortic Cusp Exc1.4 (1.5-2.0cm) EF (%) 55.0 (55-70%)Rt. Atrium4.3 (1.9-4.0cm)Asc. Aorta cm IVSd1.1 (0.7-1.1cm)RV (D) (1.8-2.4cm) PWd1.1 (0.7-1.1cm) Mitral Valve MitralMitral Stenosis E wave0.50m/sMV Mean GR.mmHg A wave1.30m/sMV Peak GR.mmHg E/A ratio0.42D MVAcm2 Aortic Valve Aortic ValveAortic Stenosis V10.70m/Daniel Mean GR.7mmHg V21.60m/Daniel Peak GR.11mmHg LVOT Diameter2.1 (1.8-2.4cm)Doppler AVA1.51cm2 AI P 1/2 [id number] Pulmonic Valve V20.80m/s Tricuspid Valve TR Velocity3.20m/s [id number] LEFT VENTRICLE The left ventricle is normal size. The left ventricle is normal in structure and function. The Ejection Fraction is within normal limits. RIGHT VENTRICLE The right ventricle is normal size. ATRIA The left atrial size is normal. The right atrium is enlarged. The interatrial septum is intact with no evidence for an atrial septal defect. MITRAL VALVE The mitral valve is normal in structure. Mitral regurgitation is mild. PULMONIC VALVE The pulmonic valve is not well visualized. TRICUSPID VALVE The tricuspid valve is grossly normal. There is moderate tricuspid regurgitation. AORTIC VALVE The aortic valve is calcified but appears to open well. There is moderate to severe aortic regurgitation. GREAT VESSELS The aortic root is normal size. PERICARDIAL EFFUSION There is no pericardial effusion. Other Information Quality : Rhythm : Abnormal. Conclusion EF 40-45% MILD TR MILD MR MILD AI MILD AV CALCIFICATION MILD PAH MILD
== END | disposition home or self-care (01) ==
LOC: Rad HDHVI 07:52
PROVIDERS: ATTEND Internal Medicine Cardiovascular Disease
DX: R00.1 Bradycardia, unspecified (principal)
CPT/HCPCS: 93306

== ENCOUNTER → 2024-07-02 | Outpatient (CLI) | payer MEDICARE, OTHER ==
[~2024-07-02] VITALS: Ht 172.7 cm; Wt 64.9 kg
[~2024-07-02] MED LIST changes: +ADENOSINE 54 MG in GIVE UN-DILUTED 0 ML IV ONE; +ADENOSINE 90 MG/30 ML INJ IV ONE
== END | disposition home or self-care (01) ==
LOC: Rad HDHVI 14:24
PROVIDERS: ATTEND Internal Medicine Cardiovascular Disease
DX: I13.0 Hypertensive heart and chronic kidney disease with heart failure and stage 1 through stage 4 chronic kidney disease, or unspecified chronic kidney disease (principal); I50.42 Chronic combined systolic (congestive) and diastolic (congestive) heart failure; N18.2 Chronic kidney disease, stage 2 (mild); R06.02 Shortness of breath; E78.5 Hyperlipidemia, unspecified; I49.5 Sick sinus syndrome; R00.1 Bradycardia, unspecified; E11.22 Type 2 diabetes mellitus with diabetic chronic kidney disease; I48.0 Paroxysmal atrial fibrillation; I25.5 Ischemic cardiomyopathy; Z95.0 Presence of cardiac pacemaker
CPT/HCPCS: 78452; 93005; 96374; 96375; A9500; J0153

== ENCOUNTER → 2024-07-13 | Outpatient (CLI) | payer MEDICARE, OTHER ==
[~2024-07-13] MED LIST changes: -ADENOSINE 54 MG in GIVE UN-DILUTED 0 ML IV ONE; -ADENOSINE 90 MG/30 ML INJ IV ONE; +IOHEXOL 350 MG/ML 100ML IJ ONE; +READI-CAT 2 (BARIUM SULF)(VANILLA SMOOTHIE) 450ML ONE
[2024-07-13 10:07] VITALS: BP 113/65; PULSE 76; RESP 18; O2SAT 97
[2024-07-13] MEDS: SODIUM CHLORIDE 0.9% 500 ML IV ONE (10:11)
--- NOTE | 2024-07-13 12:17 | DVH ---
CT CHEST, ABDOMEN AND PELVIS CLINICAL HISTORY: [place] TECHNIQUE: Multiple contiguous axial images of the chest, abdomen and pelvis with intravenous contras t. The images were reformatted degenerate coronal and sagittal reconstructions. 100 cc of Omnipaque 300 contrast was injected intravenously. All CT scans at this medical facility are performed using dose modulation techniques as appropriate t o a performed exam including the following:Automated exposure control was utilized; adjustment of the MA and/or KV according to patient size; and use of iterative reconstruction technique. Radiation Dose Information: CT Dose: CTDI volume is 9.86 mGy. Dose-length product is 806.68 mGy*cm FINDINGS: There are reticular interstitial changes with hazy ground-glass opacities along the periphery of bot h lungs with lower lobe predominance. There is some honeycombing in the bilateral lower lobes. There are scattered areas of parenchymal scarring. There is no suspicious appearing pulmonary nodule, mass or area of lung consolidation. There is no pleural effusion or pneumothorax. There is no evidence of a mediastinal mass or lymphadenopathy. There is no hilar or axillary lymphad enopathy. The heart size within normal limits. There is no pericardial effusion. Gallbladder is surgically absent. The liver, pancreas, kidneys, adrenal glands, and spleen appear within normal limits. There is no evidence of abdominal lymphadenopathy. There is no free fluid or free air. The stomach grossly appears unremarkable.The small and large bowel loops demonstrate normal caliber. Moderate amount of stool in the colon. The abdominal aorta and IVC appear within normal limits. The bladder appears unremarkable. There is mild prostatomegaly.. There is no evidence of a pelvic m ass or lymphadenopathy. There is no free fluid collection. There is no acute osseous abnormality. IMPRESSION: 1. Reticular interstitial changes with hazy ground-glass opacities along the periphery of both lungs with lower lobe predominance. There is some honeycombing in the bilateral lower lobes. Findings are c ompatible with early changes of pulmonary fibrosis. Clinical correlation is recommended. 2. There is no acute process in the abdomen and pelvis. 3. Mild prostatomegaly. 4. Moderate amount of stool in the colon. HS:Y
[2024-07-13 12:39] VITALS: BP 140/84; PULSE 75; RESP 18; O2SAT 97
== END | disposition home or self-care (01) ==
LOC: Rad HDHVI 09:45
PROVIDERS: ATTEND Internal Medicine Cardiovascular Disease
DX: R64 Cachexia (principal); I48.91 Unspecified atrial fibrillation; E11.9 Type 2 diabetes mellitus without complications; I11.0 Hypertensive heart disease with heart failure; I50.9 Heart failure, unspecified
CPT/HCPCS: 71260; 74177; 96360; 96361; G0463; Q9967

== ENCOUNTER → 2024-09-19 | Outpatient (CLI) | payer MEDICARE, OTHER ==
[~2024-09-19] VITALS: Ht 33 cm; Wt 0.5 kg
[2024-09-19 09:40] VITALS: BP 129/78; PULSE 69; RESP 16; O2SAT 97
[2024-09-19] MEDS: MULTIPLE VIT 10 ML IV ONE (09:53)
[2024-09-19] MEDS: ONDANSETRON HCL 4 MG/2 ML VIAL ONE (09:53)
[2024-09-19] MEDS: ONDANSETRON HCL 4 MG/2 ML VIAL IV ONE (09:55)
[2024-09-19] MEDS: MVI in SODIUM CHLORIDE 0.9% 500 ML IVB ONE (09:57)
[2024-09-19 13:10] VITALS: BP 104/67; PULSE 78; RESP 16; O2SAT 97
--- NOTE | 2024-09-19 14:28 | DVH ---
Exam: CT CT CHST AB PLV W CON-ORAL IV History: WEIGHT LOSS Comparison Study: None available at time of dictation. Technique: Multidetector CT of the chest, abdomen and pelvis was performed from lower neck to pubic s ymphysis. Intravenous contrast was administered during this examination. Axial, coronal and sagittal multiplanar reformats were performed by the technologist on a separate workstation. Radiation Dose Information: CT Dose: CTDI volume is 9.59 mGy. Dose-length product is 716.32 mGy*cm Omnipaque 300: 100 mL Findings: Lower neck: Thyroid appears normal Lungs: Scattered peripherally oriented pulmonary fibrosis. Not significantly changed from 07/13/2024. Heart/Vascular Structures: Normal no findings of pulmonary emboli Lymph Nodes: No adenopathy Pleura: Normal Liver: The liver is normal in size. No focal lesions. Normal hepatic vascular enhancement. Gallbladder and Biliary Tree: Gallbladder is surgically removed. Spleen: Unremarkable Pancreas: The pancreas is normal in appearance without focal lesions or abnormal enhancement. Adrenal Glands: Unremarkable Kidneys: Kidneys demonstrate normal symmetric enhancement without focal lesions, calculi or hydroneph rosis. Bladder: Unremarkable Bowel: The stomach is grossly normal in appearance. Small bowel and colon are normal in caliber and d istribution. No findings suggest bowel obstruction. Large stool burden throughout the colon. The tamika endix is not visualized; however, no secondary findings of acute appendicitis identified. Ascites: Absent Lymphadenopathy: No mesenteric, retroperitoneal or periportal lymphadenopathy. Abdominal Wall and Mesentery: Unremarkable. Vasculature: The visualized abdominal aorta is normal in size and caliber. Abdominal and pelvic vess els demonstrate normal enhancement. Pelvic Organs: Unremarkable Musculoskeletal: No aggressive focal bony lesions, acute fractures or dislocation. IMPRESSION: 1. No findings of bowel obstruction 2. Large stool burden throughout suggest 3. Stable findings in the chest unchanged from 07/13/2024. 4. No change in the thoracic or lumbar spine when compared to 07/13/2024. All CT scans at this medical facility are performed using dose modulation techniques as appropriate t o a performed exam including the following: Automated exposure control was utilized; adjustment of th e MA and/or KV according to patient size; and use of iterative reconstruction technique. HS:Y
== END | disposition home or self-care (01) ==
LOC: Rad HDHVI 09:43
PROVIDERS: ATTEND Internal Medicine Cardiovascular Disease
DX: R63.4 Abnormal weight loss (principal); R05.9 Cough, unspecified; I13.0 Hypertensive heart and chronic kidney disease with heart failure and stage 1 through stage 4 chronic kidney disease, or unspecified chronic kidney disease; E11.22 Type 2 diabetes mellitus with diabetic chronic kidney disease; N18.2 Chronic kidney disease, stage 2 (mild); I50.42 Chronic combined systolic (congestive) and diastolic (congestive) heart failure; I48.0 Paroxysmal atrial fibrillation; E78.5 Hyperlipidemia, unspecified; Z95.0 Presence of cardiac pacemaker
CPT/HCPCS: 71260; 74177; 96365; 96366; 96375; G0463; J2405; J7040; Q9967; 96360; 96361

== ENCOUNTER 2024-12-15 13:32 | Inpatient (IN) | payer MEDICARE, OTHER ==
[~2024-12-15] VITALS: Ht 182.9 cm; Wt 66.6 kg
[~2024-12-15 13:32] MED LIST changes: -IOHEXOL 350 MG/ML 100ML IJ ONE; -READI-CAT 2 (BARIUM SULF)(VANILLA SMOOTHIE) 450ML ONE
[2024-12-15 14:23] LABS: Basophils # (auto) 0 10 ^3/uL (0-0.2); Basophils % (auto) 0.3 % (0.0-2.0); Eosinophils # (auto) 0.2 10 ^3/uL (0-0.8); Eosinophils % (auto) 1.5 % (0.0-7.0); Hematocrit 44.6 % (41.0-53.0); Hemoglobin 15.1 g/dL (13.5-17.5); Lymphocytes # (auto) 1.4 10 ^3/uL (0.4-5.4); Mean Corpuscular Hgb Conc. 33.9 g/dL (32.0-36.0); Mean Corpuscular Volume 91.4 fL (80.0-100.0); Monocytes # (auto) 0.9 10 ^3/uL (0-1.3); Monocytes % (auto) 7.5 % (0.0-12.0); Neutrophils # (auto) 9.1 10 ^3/uL (1.6-8.6); Neutrophils % (auto) 78.7 % (37.0-80.0); Platelet Count (auto) 362 10^3/uL (140-450); Red Blood Cells 4.88 10^6/uL (4.5-5.90); Red Cell Distribution Width 13.5 % (11.8-14.3); White Blood Cell 11.6 10^3/uL (4.4-10.8)
[2024-12-15 14:24] LABS: Chloride 101 mmol/L (98-107); Sodium 137 mmol/L (136-145)
[2024-12-15 14:25] LABS: Anion Gap 12 (5-15); Calcium 10.4 mg/dL (8.7-10.4); Carbon Dioxide 24 mmol/L (20-31)
[2024-12-15 14:30] LABS: BUN/Creatinine Ratio 25.7 (10.0-20.0)
[2024-12-15 14:32] LABS: Blood Urea Nitrogen 38 mg/dL (9-23); Glucose 162 mg/dL (74-106)
--- NOTE | 2024-12-15 14:34 | ED.PDOC ---
HPI Comments 83 y/o M, with PMHX of HTN, GOUT, DM, and Parkinson disease presents to the ED for CC of chest pain. Patient states, he has been experiencing right sided chest pain that radiates to his right shoulder and down his right arm onset, 1200 today (12/15/24). Patient reports, additional associated symptoms or shortness of breath. Patient denies weakness, headache, nausea, vomiting, or palpitations. No other symptoms or modifying factors present at this time. Chief Complaint: Chest Pain Time Seen by MD: 13:55 Primary Care Provider: RICHI Reviewed Notes: Nurses Notes, Medications, Allergies Allergies: Coded Allergies: NO KNOWN ALLERGIES (Unverified , 10/25/22) Home Meds Active Scripts Atorvastatin Calcium (ATORVASTATIN CALCIUM) 20 Mg Tab, 40 MG PO HS for 30 Days, #60 TAB 2 Refills Prov:KACIE VASQUEZ MD 09/21/22 Reported Medications Midodrine Hcl (Midodrine Hcl) 2.5 Mg Tab, 2.5 MG PO BID, TAB 11/11/23 Rivaroxaban (XARELTO) 10 Mg Tab, 1 TAB PO DAILY for CAD, #10 TAB 04/27/23 Fludrocortisone Acetate (Florinef) 0.1 Mg Tb, 1 TAB PO BID, #90 TAB 1 Refill 04/27/23 Clopidogrel Bisulfate (Plavix) 75 Mg Tab, 1 TAB PO DAILY for CAD, #90 TAB 1 Re fill 04/27/23 Metformin Hydrochloride (Metformin Hcl) 500 Mg Tab, 500 MG PO DAILY for 30 Days, MG 09/21/22 Pramipexole Dihydrochloride (Mirapex) 0.5 Mg Tab, 0.5 MG PO, TAB 09/21/22 Allopurinol (Allopurinol) 100 Mg Tab, 100 MG PO DAILY for 30 Days, MG 09/21/22 Escitalopram Oxalate (Lexapro) 10 Mg Tab, 1 TAB PO DAILY, #90 TAB 3 Refills 09/21/22 Rasagiline Mesylate (Rasagiline Mesylate) 1 Mg Tab, 1 MG PO DAILY for PARKINSON'S DISEASE, TAB 09/21/22 Carbidopa-Levodopa (Carbidopa/Levodopa Odt 25-100 mg) 1 Tab Tab, 1.5 TAB PO TID for parkinson, TAB 09/21/22 Zonisamide (Zonisamide) 100 Mg Cap, 100 MG PO, CAP 09/21/22 Information Source: Patient, Significant Other Mode of Arrival: Wheelchair Severity: Moderate Timing: Hours Duration: Since onset Prehospital treatment: None Location: Chest (R) Radiation: Shoulder (R), Arm (R) Quality: Sharp Onset: At Rest Cardiac Risk Factors: HTN, Diabetes PE Risk Factors: None History of: None Modifying Factors: Nothing Associated Signs and Symptoms: SOB Past Medical History PAST MEDICAL HISTORY: DM, Gout, HTN Surgical History: Cholecystectomy, Pacemaker, Tonsillectomy Family History Family History: Unknown Social History Smoker: Non-Smoker Alcohol: Denies ETOH Use Drugs: Denies Drug Use Lives In: Home Constitutional: denies: chills, diaphoresis, fatigue, fever, malaise, sweats, weakness, others EENTM: denies: blurred vision, double vision, ear bleeding, ear discharge, ear drainage, ear pain, ear ringing, eye pain, eye redness, hearing loss, mouth pain, mouth swelling, nasal discharge, nose bleeding, nose congestion, nose pain, photophobia, tearing, throat pain, throat swelling, voice changes, others Respiratory: reports: shortness of breath; denies: cough, hemoptysis, orthopnea, SOB at rest, SOB with excertion, stridor, wheezing, others Cardiovascular: reports: chest pain; denies: dizzy spells, diaphoresis, Dyspnea on exertion, edema, irregular heart beat, left arm pain, lightheadedness, palpitations, PND, syncope, others Gastrointestinal: denies: abdomen distended, abdominal pain, blood streaked bowels, constipated, diarrhea, dysphagia, difficulty swallowing, hematemesis, melena, nausea, poor appetite, poor fluid intake, rectal bleeding, rectal pain, vomiting, others Genitourinary: denies: burning, dysuria, flank pain, frequency, hematuria, incontinence, penile discharge, penile sore, pain, testicle pain, testicle swelling, urgency, others Neurological: denies: dizziness, fainting, headache, left sided numbness, left sided weakness, numbness, paresthesia, pre-existing deficit, right sided numbness, right sided weakness, seizure, speech problems, tingling, tremors, weakness, others Musculoskeletal: denies: back pain, gout, joint pain, joint swelling, muscle pain, muscle stiffness, neck pain, others Integumetry: denies: bruises, change in color, change in hair/nails, dryness, laceration, lesions, lumps, rash, wounds, others Allergic/Immunocompromised: denies: Difficulty Healing, Frequent Infections, Hives, Itching, others Hematologic/Lymphatic: denies: anemia, blood clots, easy bleeding, easy bruising, swollen glands, others Endocrine: denies: excessive hunger, excessive sweating, excessive thirst, excessive urination, flushing, intolerance to cold, intolerance to heat, unexplained weight gain, unexplained weight loss, others Psychiatric: denies: anxiety, bipolar disorder, depression, hopeless, panic disorder, schizophrenia, sleepless, suicidal, others All Other Systems: Reviewed and Negative Physical Exam General Appearance: No Apparent Distress, Normal HEENT: Normal ENT Inspection, Pharynx Normal, TMs Normal Neck: Full Range of Motion, Non-Tender, Normal, Normal Inspection Respiratory: Chest Non-Tender, Lungs Clear, No Accessory Muscle Use, No Respiratory Distress, Normal Breath Sounds Cardiovascular: No Edema, No JVD, No Murmur, No Gallop, Normal Peripheral Pulses, Regular Rate/Rhythm Breast Exam: Deferred Gastrointestinal: No Organomegaly, Non Tender, No Pulsatile Mass, Normal Bowel Sounds, Soft Genitalia: Deferred Pelvic: Deferred Rectal: Deferred Extremities: No calf tenderness, Normal capillary refill, Normal inspection, Normal range of motion, Non-tender, No pedal edema Musculoskeletal : Apperance: Normal Neurologic: Alert, cafe server II-XII nml as Tested, No Motor Deficits, Normal Affect, Normal Mood, No Sensory Deficits Cerebellar Function: Normal Reflexes: Normal Skin: Dry, Normal Color, Warm Lymphatic: No Adenopathy Was a procedure done? Was a procedure done?: No CP Differential Dx Differential Diagnosis: Anxiety / Panic Attack Differential Diagnosis: Angina, Chest Wall Pain, Costochondritis, Esophageal reflux/spasm, Gastritis, Myocardial Infarction, Pericarditis, Pneumonia, Pneumothorax, Pulmonary Embolus X-Ray, Labs, Meds, VS Vital Signs Date Time Temp Pulse Resp B/P (MAP) Pulse Ox O2 Delivery O2 Flow Rate FiO2 12/15/24 16:00 73 12/15/24 14:58 73 17 111/75 (87) 98 12/15/24 14:47 84 20 95 Nasal Cannula* 2 28 12/15/24 14:34 74 12/15/24 14:02 97.6 72 20 123/85 (98) 97.6 12/15/24 13:43 97.9 77 18 80/55 (63) 98 97.9 12/15/24 13:40 77 Lab Test 12/15/24 16:19 12/15/24 14:26 12/15/24 13:40 Range/Units Troponin I High Sensitivity 10 9 9 </=54 ng/L White Blood Count 11.6 H 4.4-10.8 10^3/uL Red Blood Count 4.88 4.5-5.90 10^6/uL Hemoglobin 15.1 13.5-17.5 g/dL Hematocrit 44.6 41.0-53.0 % Mean Corpuscular Volume 91.4 80.0-100.0 fL Mean Corpuscular Hemoglobin 31.0 28.0-32.0 pg Mean Corpuscular Hemoglobin Concent 33.9 32.0-36.0 g/dL Red Cell Distribution Width 13.5 11.8-14.3 % Platelet Count 362 140-450 10^3/uL Mean Platelet Volume 8.2 6.9-10.8 fL Neutrophils (%) (Auto) 78.7 37.0-80.0 % Lymphocytes (%) (Auto) 12.0 10.0-50.0 % Monocytes (%) (Auto) 7.5 0.0-12.0 % Eosinophils (%) (Auto) 1.5 0.0-7.0 % Basophils (%) (Auto) 0.3 0.0-2.0 % Neutrophils # (Auto) 9.1 H 1.6-8.6 10 ^3/uL Lymphocytes # (Auto) 1.4 0.4-5.4 10 ^3/uL Monocytes # (Auto) 0.9 0-1.3 10 ^3/uL Eosinophils # (Auto) 0.2 0-0.8 10 ^3/uL Basophils # (Auto) 0 0-0.2 10 ^3/uL Nucleated Red Blood Cells 0.0 % Sodium Level 137 136-145 mmol/L Potassium Level 4.0 3.5-5.1 mmol/L Chloride Level 101 98-107 mmol/L Carbon Dioxide Level 24 20-31 mmol/L Anion Gap 12 5-15 Blood Urea Nitrogen 38 H 9-23 mg/dL Creatinine 1.48 H 0.700-1.30 mg/dL Glomerular Filtration Rate Calc 47 >90 mL/min BUN/Creatinine Ratio 25.7 H 10.0-20.0 Serum Glucose 162 H 74-106 mg/dL Calcium Level 10.4 8.7-10.4 mg/dL Current Medications Medications (Trade) Dose Ordered Sig/Chris Route Start Time Stop Time Status Last Admin Aspirin 325 mg ONCE ONCE PO 12/15/24 14:15 12/15/24 14:16 DC 12/15/24 14:44 Time of 1ST Reevaluation: 14:25 Reevaluation 1ST: Unchanged Time of 2ND Reevaluation: 17:03 Reevaluation 2ND: Improved Patient Education/Counseling: Diagnosis, Treatment, Prognosis, Need For Follow Up Family Education/Counseling: Diagnosis, Treatment, Prognosis, Need For Follow Up, No Family Present Additional Information Previous visits reviewed: 11/10/23 DX: BRADYCARDIA D/T PACEMAKER The following tests were ordered, and results were reviewed by me: TROPONIN X3, EKG X3, CBC, BMP, CXR Additional Information was gathered from interviewing the following independent historians: I reviewed and agreed with the following test results read by other providers: CXR I discussed treatment and results with medical personnel and: patient Comprehensive systems review obtained and negative except for what is stated in the HPI. Departure 1 Departure Time of Disposition: 17:04 Impression: Primary Impression: Unstable angina Disposition: ADMITTED INPATIENT Admit to: [facility] Condition: Stable Discharged With: Self, Relative Critical Care Note Critical Care Time?: Yes (55 min-critical care time only) Critical care comment: Due to concerns for patients condition deteriorating, the care required my highest level of attention and readiness to intervene. I assessed the patient, reviewed the medical records, ordered the appropriate tests and treatments, then reassessed for results and responsiveness. I communicated with medical personnel and consultants and formulated a plan of care. Total critical care time excludes any procedures Stability Stability form required: No Heart Score Heart Score: Heart Score Response (Comments) Value History Moderate Suspicious 1 EKG Repolarization Disturb 1 Age >65 2 Risk Factors >3 or Hx ASHD 2 Troponin Normal limit 0 Total 6 I personally scribed for JOSIAH MOURA MD ([email or web address]) on 12/15/24 at 14:33. Electronically submitted by Lona Jonatan [email or web address]). I personally scribed for JOSIAH MOURA MD ([facility]) on 12/15/24 at 14:46. Electronically submitted by Lona Cheung [email or web address]). JOSIAH MOURA MD December 15, 2024 14:33
--- NOTE | 2024-12-15 14:36 | ECG ---
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
--- NOTE | 2024-12-15 14:39 | DVH ---
CHEST RADIOGRAPH Indication: cp Technique: Single frontal view of the chest was obtained Comparison: XY CHEST PORTABLE on DOS: 11/10/23, XY CHEST PORTABLE on DOS: 01/24/23, XY CHEST PORTABLE on DOS: 10/28/22 FINDINGS: Lines and Tubes: Dual-chamber pacemaker in place. Unchanged from . Lungs: No focal consolidation. Pleura: No effusion. No pneumothorax. Cardiomediastinal contours: Unremarkable Bones: No acute osseous abnormality. IMPRESSION: 1. No acute cardiopulmonary disease. 2. No significant change from 06/13/2024 HS:Y
[2024-12-15] MEDS: ASPirin 325 MG TAB PO ONE (14:44)
[2024-12-15 14:47] VITALS: PULSE 84; RESP 20; O2SAT 95
--- NOTE | 2024-12-15 16:53 | ECG ---
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
--- NOTE | 2024-12-15 20:10 | DVHHP2 ---
Admitting Diagnosis: Chest pain History of Present Illness 83 y/o M, with PMHX of HTN, GOUT, DM, and Parkinson disease presents to the ED for CC of chest pain. Patient states, he has been experiencing right sided chest pain that radiates to his right shoulder and down his right arm onset, 1200 today (12/15/24). Patient reports, additional associated symptoms or shortness of breath. Patient denies weakness, headache, nausea, vomiting, or palpitations. No other symptoms or modifying factors present at this time. PAST MEDICAL HISTORY: DM, Gout, HTN Surgical History: Cholecystectomy, Pacemaker, Tonsillectomy Family History Family History: Unknown Social History Smoker: Non-Smoker Alcohol: Denies ETOH Use Drugs: Denies Drug Use Lives In: Home Patient Family History: Cardiovascular disease G8 MOTHER, FH: cancer G8 FATHER, Allergies: Coded Allergies: NO KNOWN ALLERGIES (Unverified , 10/25/22) Home Meds Active Scripts Atorvastatin Calcium (ATORVASTATIN CALCIUM) 20 Mg Tab, 40 MG PO HS for 30 Days, #60 TAB 2 Refills Prov:KACIE VASQUEZ MD 09/21/22 Reported Medications Midodrine Hcl (Midodrine Hcl) 2.5 Mg Tab, 2.5 MG PO BID, TAB 11/11/23 Rivaroxaban (XARELTO) 10 Mg Tab, 1 TAB PO DAILY for CAD, #10 TAB 04/27/23 Fludrocortisone Acetate (Florinef) 0.1 Mg Tb, 1 TAB PO BID, #90 TAB 1 Refill 04/27/23 Clopidogrel Bisulfate (Plavix) 75 Mg Tab, 1 TAB PO DAILY for CAD, #90 TAB 1 Refill 04/27/23 Metformin Hydrochloride (Metformin Hcl) 500 Mg Tab, 500 MG PO DAILY for 30 Days, MG 09/21/22 Pramipexole Dihydrochloride (Mirapex) 0.5 Mg Tab, 0.5 MG PO, TAB 09/21/22 Allopurinol (Allopurinol) 100 Mg Tab, 100 MG PO DAILY for 30 Days, MG 09/21/22 Escitalopram Oxalate (Lexapro) 10 Mg Tab, 1 TAB PO DAILY, #90 TAB 3 Refills 09/21/22 Rasagiline Mesylate (Rasagiline Mesylate) 1 Mg Tab, 1 MG PO DAILY for PARKINSON'S DISEASE, TAB 09/21/22 Carbidopa-Levodopa (Carbidopa/Levodopa Odt 25-100 mg) 1 Tab Tab, 1.5 TAB PO TID for parkinson, TAB 09/21/22 Zonisamide (Zonisamide) 100 Mg Cap, 100 MG PO, CAP 09/21/22 Vital Signs Vital Signs Date Time Temp Pulse Resp B/P (MAP) Pulse Ox O2 Delivery O2 Flow Rate FiO2 12/15/24 17:27 77 18 105/60 (75) 95 12/15/24 14:47 Nasal Cannula* 2 12/15/24 14:02 97.6 97.6 Results Labs Test 12/15/24 16:19 12/15/24 13:40 Range/Units Troponin I High Sensitivity 10 </=54 ng/L White Blood Count 11.6 H 4.4-10.8 10^3/uL Red Blood Count 4.88 4.5-5.90 10^6/uL Hemoglobin 15.1 13.5-17.5 g/dL Hematocrit 44.6 41.0-53.0 % Mean Corpuscular Volume 91.4 80.0-100.0 fL Mean Corpuscular Hemoglobin 31.0 28.0-32.0 pg Mean Corpuscular Hemoglobin Concent 33.9 32.0-36.0 g/dL Red Cell Distribution Width 13.5 11.8-14.3 % Platelet Count 362 140-450 10^3/uL Mean Platelet Volume 8.2 6.9-10.8 fL Neutrophils (%) (Auto) 78.7 37.0-80.0 % Lymphocytes (%) (Auto) 12.0 10.0-50.0 % Monocytes (%) (Auto) 7.5 0.0-12.0 % Eosinophils (%) (Auto) 1.5 0.0-7.0 % Basophils (%) (Auto) 0.3 0.0-2.0 % Neutrophils # (Auto) 9.1 H 1.6-8.6 10 ^3/uL Lymphocytes # (Auto) 1.4 0.4-5.4 10 ^3/uL Monocytes # (Auto) 0.9 0-1.3 10 ^3/uL Eosinophils # (Auto) 0.2 0-0.8 10 ^3/uL Basophils # (Auto) 0 0-0.2 10 ^3/uL Nucleated Red Blood Cells 0.0 % Sodium Level 137 136-145 mmol/L Potassium Level 4.0 3.5-5.1 mmol/L Chloride Level 101 98-107 mmol/L Carbon Dioxide Level 24 20-31 mmol/L Anion Gap 12 5-15 Blood Urea Nitrogen 38 H 9-23 mg/dL Creatinine 1.48 H 0.700-1.30 mg/dL Glomerular Filtration Rate Calc 47 >90 mL/min BUN/Creatinine Ratio 25.7 H 10.0-20.0 Serum Glucose 162 H 74-106 mg/dL Calcium Level 10.4 8.7-10.4 mg/dL Primary Diagnosis chest pain r/o acs MONIKA on CKD Plan Chest pain lasting five 6 hours Troponin negative EKG is paced Check echo of the heart rule out ACS NPO midnight Urine sodium, urine creatinine Kidney ultrasound Nuclear stress test to rule out ischemic cardiomyopathy Resume home meds Full code Lovenox for DVT prophylaxis No GI prophylaxis needed Plan discussed with: Patient Problems List: (1) Chest pain, rule out acute myocardial infarction (2) Unstable angina Status: Acute Date of Service: December 15, 2024 Billing Provider: TAMMI FRIEND MD Common Visit Codes: [id number] INP/OBS CARE (MOD) TAMMI FRIEND MD December 15, 2024 20:10
[2024-12-15] MEDS ORDERED: HYDROmorphone HCL 2 MG/ML VL/or syr IV PRN (20:15)
[2024-12-15] MEDS ORDERED: NITROGLYCERIN 0.4 MG SL TAB SL PRN (20:15)
[2024-12-15] MEDS ORDERED: DOCUSATE SOD 100 MG CAP PO PRN (20:15)
[2024-12-15] MEDS ORDERED: MORPHINE SULFATE INJ 2 MG/ml SYRG IV PRN (20:15)
[2024-12-15] MEDS ORDERED: ONDANSETRON HCL 4 MG/2 ML VIAL IV PRN (20:15)
--- NOTE | 2024-12-15 20:52 | DVH ---
INDICATION: MONIKA on CKD TECHNIQUE: Multiple real-time sonographic images of the kidneys and bladder were obtained. COMPARISON: CT abdomen and pelvis 09/19/2024 FINDINGS: The right kidney measures 10 cm in length, which is normal in size. There is normal echogenicity of the right kidney. No hydronephrosis. The left kidney measures 8.6 cm in length, which is normal in size. There is normal echogenicity of the left kidney. No hydronephrosis. Urinary bladder volume of 413 cc with debris noted within the urinary bladder. Anechoic structure se en near the posterior urinary bladder wall which may represent bowel when correlated with CT chest ab domen and pelvis of 09/19/2024 IMPRESSION: Mild atrophy of the left kidney. Otherwise, unremarkable sonographic appearance of the kidneys. No h ydronephrosis. Layering debris within the urinary bladder. Urinary bladder volume of 413 cc
[2024-12-15] MEDS: MIDODRINE HCL 2.5 MG PO SCH (22:00)
[2024-12-15] MEDS ORDERED: CARBIDOPA LEVODOPA PO SCH (22:00)
[2024-12-15 22:05] VITALS: BP 132/74; PULSE 83; RESP 19; TEMP 97.9; O2SAT 97
[2024-12-15] MEDS: ATORVASTATIN 20 MG TAB PO SCH (23:27)
[2024-12-15] MEDS: FLUDROCORTISONE ACETATE 0.1 MG TAB PO SCH (23:27)
[2024-12-15] MEDS: SODIUM CHLOR 0.9% PF (SALINE LOCK) 10ML VIAL/SYR IV SCH (23:27)
[2024-12-15] MEDS: LACTATED RINGER'S 500 ML IV ONE (23:30)
[2024-12-16] VITALS (7 sets, daily range): BP systolic 104–133; BP diastolic 68–98; PULSE 73–80; RESP 17–18; TEMP 97.2–99.2; O2SAT 0–98
[2024-12-16 07:35] LABS: Basophils # (auto) 0 10 ^3/uL (0-0.2); Basophils % (auto) 0.3 % (0.0-2.0); Eosinophils # (auto) 0.3 10 ^3/uL (0-0.8); Eosinophils % (auto) 1.9 % (0.0-7.0); Hematocrit 43.3 % (41.0-53.0); Hemoglobin 15.1 g/dL (13.5-17.5); Lymphocytes # (auto) 1.9 10 ^3/uL (0.4-5.4); Lymphocytes % (auto) 14.6 % (10.0-50.0); Mean Corpuscular Hemoglobin 31.6 pg (28.0-32.0); Mean Corpuscular Hgb Conc. 34.9 g/dL (32.0-36.0); Mean Corpuscular Volume 90.6 fL (80.0-100.0); Monocytes # (auto) 1.3 10 ^3/uL (0-1.3); Monocytes % (auto) 9.7 % (0.0-12.0); Neutrophils # (auto) 9.7 10 ^3/uL (1.6-8.6); Neutrophils % (auto) 73.5 % (37.0-80.0); Nucleated Red Blood Cells % 0.1 %; Platelet Count (auto) 325 10^3/uL (140-450); Red Blood Cells 4.78 10^6/uL (4.5-5.90); Red Cell Distribution Width 13.4 % (11.8-14.3); White Blood Cell 13.1 10^3/uL (4.4-10.8)
[2024-12-16 07:48] LABS: Alanine Aminotransferase 29 U/L (7-40); Albumin 4.5 g/dL (3.2-4.8); Alkaline Phosphatase 86 U/L (46-116); Anion Gap 11 (5-15); Aspartate Aminotransferase 37 U/L (13-40); BUN/Creatinine Ratio 22.4 (10.0-20.0); Blood Urea Nitrogen 24 mg/dL (9-23); Calcium 9.7 mg/dL (8.7-10.4); Carbon Dioxide 25 mmol/L (20-31); Chloride 102 mmol/L (98-107); Glucose 106 mg/dL (74-106); Potassium 4.3 mmol/L (3.5-5.1); Sodium 138 mmol/L (136-145); Total Protein 7.4 g/dL (5.7-8.2)
[2024-12-16] MEDS ORDERED: RIVAROXABAN 10 MG TAB PO SCH (10:00)
[2024-12-16] MEDS: CLOPIDOGREL BISULFATE 75 MG TAB PO SCH (11:44)
[2024-12-16] MEDS: CITALOPRAM HYDROBR 20 MG TAB PO SCH (11:44)
[2024-12-16] MEDS: ALLOPURINOL 100 MG TAB PO SCH (11:44)
[2024-12-16] MEDS: ENOXAPARIN SOD 40 MG/0.4 ML SYRINGE SC SCH (11:44)
--- NOTE | 2024-12-16 12:27 | DVHPN2 ---
Subjective 83-year-old male who was admitted for chest pain and cough associated with production of green phlegm for about 2 weeks The chest pain is pleuritic right-sided at the lower anterior ribcage Changes from previous H/P or p: Changes Objective Vitals Vital Signs Date Time Temp Pulse Resp B/P (MAP) Pulse Ox O2 Delivery O2 Flow Rate FiO2 12/16/24 09:00 97.2 74 17 115/80 (92) 97 97.2 12/16/24 08:00 Room Air* 0 21 Intake/Output Intake and Output 12/16/24 07:00 # Voids 1 # Bowel Movements 2 General Appearance: Alert, Oriented X3, Cooperative Lungs: Clear to auscultation, Normal air movement Cardiovascular: Regular rate, Normal S1, Normal S2 Abdomen: Normal bowel sounds, Soft, No tenderness Extremities: No edema Medications Current Medications Medications Dose Ordered Sig/Chris Route Start Time Stop Time Status Last Admin Dose Admin Sodium Chloride 10 ml Q8HR IV 12/15/24 22:00 12/16/24 06:24 10 ML Docusate Sodium 100 mg BIDPRN PRN PO 12/15/24 20:15 Acetaminophen 650 mg Q6HP PRN PO 12/15/24 20:15 Acetaminophen/ Hydrocodone Bitart 1 tab Q4HP PRN PO 12/15/24 20:15 Hydromorphone HCl 0.5 mg Q4HP PRN IV 12/15/24 20:15 Ondansetron HCl 4 mg Q4HP PRN IV 12/15/24 20:15 Enoxaparin Sodium 40 mg DAILY SC 12/16/24 10:00 12/16/24 11:44 40 MG Nitroglycerin 0.4 mg Q5MINP PRN SL 12/15/24 20:15 Morphine Sulfate 2 mg Q30M PRN IV 12/15/24 20:15 Allopurinol 100 mg DAILY PO 12/16/24 10:00 12/16/24 11:44 100 MG Atorvastatin Calcium 40 mg HS PO 12/15/24 22:00 12/15/24 23:27 40 MG Clopidogrel Bisulfate 75 mg DAILY PO 12/16/24 10:00 12/16/24 11:44 75 MG Fludrocortisone Acetate 0.1 mg BID PO 12/15/24 22:00 12/16/24 11:44 0.1 MG Rivaroxaban 10 mg DAILY PO 12/16/24 10:00 Hold Patient Own Medication 1.5 tab TID PO 12/15/24 22:00 Hold Citalopram Hydrobromide 20 mg DAILY PO 12/16/24 10:00 12/16/24 11:44 20 MG Patient Own Medication 2.5 mg BID PO 12/15/24 22:00 Laboratory Results Laboratory Tests 12/16/24 06:14 Chemistry Test 12/15/24 13:40 12/16/24 06:14 Calcium Level 10.4 mg/dL (8.7-10.4) 9.7 mg/dL (8.7-10.4) Albumin 4.5 g/dL (3.2-4.8) Total Protein 7.4 g/dL (5.7-8.2) LFT Test 12/16/24 06:14 Alanine Aminotransferase (ALT) 29 U/L (7-40) Alkaline Phosphatase 86 U/L (46-116) Aspartate Amino Transferase (AST) 37 U/L (13-40) Total Bilirubin 1.0 mg/dL (0.2-1.0) Assessment/Plan Assessment/Plan Chest pain Acute bronchitis Hypertension Type 2 diabetes Gout Parkinson's disease Plan The patient takes Plavix and Xarelto at home, continue Start doxycycline IV for acute bronchitis Consult cardiology Cardiac diet Accu-Cheks to control his diabetes Full code Monitor closely Advance directives discussed for 22 minutes Resume the home medications Plan discussed with: Patient My Orders Orders - BARRIE CARVALHO MD Procedure Category Date Status Time * Cardiology Consult CONS 12/16/24 Transmitted 09:52 Cardiac DIET 12/16/24 Transmitted Diet-2gna,Lofat,Lochol Lunch Date of Service: December 16, 2024 Billing Provider: BARRIE CARVALHO MD Common Visit Codes: [id number] INP/OBS CARE(HIGH) Secondary Visit Codes: [id number] CARE PLAN 30 MINUTES BARRIE CARVALHO MD December 16, 2024 12:27
[2024-12-16] MEDS ORDERED: DEXTROSE (50%) 50ML SYRG IV PRN (12:30)
[2024-12-16] MEDS: DOXYCYCLINE 100MG/100ML 100 ML IV SCH (12:57)
--- NOTE | 2024-12-16 13:04 | DVHSR ---
APPROVED REPORT EXAM: Two-dimensional and M-mode echocardiogram with Doppler and color Doppler. Blood Pressure: 133/98 mmHg INDICATION Chest Pain R/O acs Surgery/Intervention Pacemaker: [employer] Height: 6'0", Weight: 116 DIMENSIONS LVDd4.1 (3.8-5.7cm)LA (2D)3.6 (1.9-4.0cm)Aortic Root3.6 (2.0-3.7cm) LVDs3.0 (2.5-4.0cm)LA (MM) (1.9-4.0cm)Aortic Cusp Exc1.2 (1.5-2.0cm) EF (%) 55.0 (55-70%)Rt. Atrium3.3 (1.9-4.0cm)Asc. Aorta cm IVSd1.3 (0.7-1.1cm)RV (D) (1.8-2.4cm) PWd1.0 (0.7-1.1cm) Mitral Valve MitralMitral Stenosis E wave0.59m/sMV Mean GR.mmHg A wave1.35m/sMV Peak GR.mmHg E/A ratio0.42D MVAcm2 DECEL [id number] 1/2 Timems Aortic Valve Aortic ValveAortic Stenosis V10.82m/Daniel Mean GR.5mmHg V21.69m/Daniel Peak GR.11mmHg LVOT Diameter2.4 (1.8-2.4cm)Doppler AVA2.19cm2 Pulmonic Valve V20.95m/s Tricuspid Valve TR Velocity2.73m/s [id number] Other Information Technically limited study due to body habitus. Conclusion Left ventricle: Mild concentric left ventricular hypertrophy was seen. The LVEF was around 60%. Th ere was no gross wall motion abnormality. Abnormal relaxation of diastolic function was observed. Right ventricle was normal size with normal systolic function. Both atria were normal size. Aortic valve: Aortic valve is trileaflet. There was trace aortic insufficiency. There was trace aye ral/tricuspid regurgitation. There was trace pulmonary valve insufficiency. Right ventricular systolic pressure was 30 mm Hg. There was no pericardial effusion. IVC was normal size with normal respiratory variation.
[2024-12-16] MEDS: ACETAMINOPHEN 325 MG TAB PO PRN (13:23)
[2024-12-16] MEDS: CARBIDOPA W LEVODOPA 25/100mg TABLET PO SCH (13:24)
[2024-12-16] MEDS: InsuLIN REG 1unit/0.01ml Soln (100units/ml) SC SCH (16:58)
[2024-12-16] MEDS: ACCU-CHEK COMFORT CURVE STRIP VI SCH (16:58)
[2024-12-17] VITALS (9 sets, daily range): BP systolic 97–143; BP diastolic 62–86; PULSE 51–78; RESP 15–20; TEMP 97.3–98.9; O2SAT 97–100
[2024-12-17 06:29] LABS: Basophils # (auto) 0.1 10 ^3/uL (0-0.2); Basophils % (auto) 0.6 % (0.0-2.0); Eosinophils # (auto) 0.3 10 ^3/uL (0-0.8); Eosinophils % (auto) 3.1 % (0.0-7.0); Hematocrit 38.4 % (41.0-53.0); Hemoglobin 13.3 g/dL (13.5-17.5); Lymphocytes # (auto) 1.8 10 ^3/uL (0.4-5.4); Lymphocytes % (auto) 19.1 % (10.0-50.0); Mean Corpuscular Hemoglobin 31.4 pg (28.0-32.0); Mean Corpuscular Hgb Conc. 34.7 g/dL (32.0-36.0); Mean Corpuscular Volume 90.6 fL (80.0-100.0); Neutrophils # (auto) 6.4 10 ^3/uL (1.6-8.6); Neutrophils % (auto) 67.2 % (37.0-80.0); Platelet Count (auto) 291 10^3/uL (140-450); Red Blood Cells 4.23 10^6/uL (4.5-5.90); Red Cell Distribution Width 13.6 % (11.8-14.3); White Blood Cell 9.5 10^3/uL (4.4-10.8)
[2024-12-17 06:42] LABS: Alanine Aminotransferase 12 U/L (7-40); Albumin 3.8 g/dL (3.2-4.8); Alkaline Phosphatase 65 U/L (46-116); Anion Gap 8 (5-15); Aspartate Aminotransferase 32 U/L (13-40); BUN/Creatinine Ratio 20.5 (10.0-20.0); Calcium 8.8 mg/dL (8.7-10.4); Carbon Dioxide 26 mmol/L (20-31); Chloride 103 mmol/L (98-107); Potassium 3.9 mmol/L (3.5-5.1); Sodium 137 mmol/L (136-145); Total Protein 6.3 g/dL (5.7-8.2)
[2024-12-17 06:43] LABS: Bilirubin, Total 0.5 mg/dL (0.2-1.0)
[2024-12-17 06:59] LABS: Blood Urea Nitrogen 25 mg/dL (9-23); Glucose 110 mg/dL (74-106)
[2024-12-17 10:28] LABS: Cholesterol 106 mg/dL (< 200); HDL Cholesterol 24 mg/dL (40-59); LDL Cholesterol 70 mg/dL (< 100); Triglycerides 115 mg/dL (< 150)
--- NOTE | 2024-12-17 11:45 | DVHPN2 ---
Subjective Still complaining of cough productive of dark sputum and chest pain with deep inspiration Changes from previous H/P or p: Changes Objective Vitals Vital Signs Date Time Temp Pulse Resp B/P (MAP) Pulse Ox O2 Delivery O2 Flow Rate FiO2 12/17/24 08:58 97.3 75 16 97/64 (75) 97 97.3 12/17/24 08:00 Room Air* 0 21 Intake/Output Intake and Output 12/17/24 07:00 Intake Total 1460 ml Balance 1460 ml Intake Oral 1360 ml IV Total 100 ml # Voids 2 General Appearance: Alert, Oriented X3, Cooperative Lungs: Clear to auscultation, Normal air movement Cardiovascular: Regular rate, Normal S1, Normal S2 Abdomen: Normal bowel sounds, Soft, No tenderness Extremities: No edema Medications Current Medications Medications Dose Ordered Sig/Chris Route Start Time Stop Time Status Last Admin Dose Admin Sodium Chloride 10 ml Q8HR IV 12/15/24 22:00 12/17/24 05:44 10 ML Docusate Sodium 100 mg BIDPRN PRN PO 12/15/24 20:15 Acetaminophen 650 mg Q6HP PRN PO 12/15/24 20:15 12/16/24 13:23 650 MG Acetaminophen/ Hydrocodone Bitart 1 tab Q4HP PRN PO 12/15/24 20:15 Hydromorphone HCl 0.5 mg Q4HP PRN IV 12/15/24 20:15 Ondansetron HCl 4 mg Q4HP PRN IV 12/15/24 20:15 Enoxaparin Sodium 40 mg DAILY SC 12/16/24 10:00 12/17/24 09:35 40 MG Nitroglycerin 0.4 mg Q5MINP PRN SL 12/15/24 20:15 Morphine Sulfate 2 mg Q30M PRN IV 12/15/24 20:15 Allopurinol 100 mg DAILY PO 12/16/24 10:00 12/17/24 09:35 100 MG Atorvastatin Calcium 40 mg HS PO 12/15/24 22:00 12/16/24 22:14 40 MG Clopidogrel Bisulfate 75 mg DAILY PO 12/16/24 10:00 12/17/24 09:35 75 MG Fludrocortisone Acetate 0.1 mg BID PO 12/15/24 22:00 12/17/24 09:35 0.1 MG Citalopram Hydrobromide 20 mg DAILY PO 12/16/24 10:00 12/17/24 09:35 20 MG Patient Own Medication 2.5 mg BID PO 12/15/24 22:00 Hold Diagnostic Test (Pha) 1 strip ACHS 12/16/24 17:00 12/17/24 05:43 1 STRIP Insulin Human Regular ACHS SC 12/16/24 17:00 Dextrose 50 ml UD PRN IV 12/16/24 12:30 Doxycycline Hyclate 100 ml @ 50 mls/hr Q12H IV 12/16/24 12:30 12/17/24 00:30 50 MLS/HR Carbidopa/Levodopa 1.5 tab TID PO 12/16/24 14:00 12/17/24 05:43 1.5 TAB Laboratory Results Laboratory Tests 12/17/24 06:04 Chemistry Test 12/17/24 06:04 Albumin 3.8 g/dL (3.2-4.8) Calcium Level 8.8 mg/dL (8.7-10.4) Total Protein 6.3 g/dL (5.7-8.2) Lipid panel Test 12/17/24 06:04 Cholesterol Level 106 mg/dL (< 200) HDL Cholesterol 24 mg/dL (40-59) L Triglycerides Level 115 mg/dL (< 150) LFT Test 12/17/24 06:04 Alanine Aminotransferase (ALT) 12 U/L (7-40) Alkaline Phosphatase 65 U/L (46-116) Aspartate Amino Transferase (AST) 32 U/L (13-40) Total Bilirubin 0.5 mg/dL (0.2-1.0) HgA1c, TSH Test 12/17/24 06:04 Thyroid Stimulating Hormone (TSH) 0.05 uIU/mL (0.55-4.78) L Assessment/Plan Assessment/Plan Chest pain Acute bronchitis Hypertension Type 2 diabetes Gout Parkinson's disease Plan The patient takes Plavix and Xarelto at home, continue Start doxycycline IV for acute bronchitis Consult cardiology Cardiac diet Accu-Cheks to control his diabetes Full code Monitor closely Advance directives discussed for 22 minutes Resume the home medications 12/17/2024: Continue current management with IV doxycycline Oxygen as needed Consult cardiology Monitor the patient closely Resume the home medications Plan discussed with: Patient My Orders Orders - BARRIE CARVALHO MD Procedure Category Date Status Time Glucose Blood PHA 12/16/24 In Process (Accu-Chek Comfort 17:00 Insulin R (Human) PHA 12/16/24 In Process (Insulin R) 17:00 Dextrose 50% Syringe PHA 12/16/24 In Process 12:30 Doxycycline PHA 12/16/24 In Process 100mg/100ml 12:30 Date of Service: December 17, 2024 Billing Provider: BARRIE CARVALHO MD Common Visit Codes: [id number] INP/OBS CARE(HIGH) BARRIE CARVALHO MD December 17, 2024 11:45
[2024-12-18] VITALS (8 sets, daily range): BP systolic 107–121; BP diastolic 57–85; PULSE 68–79; RESP 14–19; TEMP 96.9–98.8; O2SAT 95–98
[2024-12-18] MEDS: HYDROcodone-ACET 5/325MG TAB PO PRN (06:17)
[2024-12-18 06:57] LABS: Basophils # (auto) 0 10 ^3/uL (0-0.2); Basophils % (auto) 0.3 % (0.0-2.0); Eosinophils # (auto) 0.3 10 ^3/uL (0-0.8); Eosinophils % (auto) 2.9 % (0.0-7.0); Hematocrit 35.5 % (41.0-53.0); Hemoglobin 12.4 g/dL (13.5-17.5); Lymphocytes # (auto) 1.6 10 ^3/uL (0.4-5.4); Lymphocytes % (auto) 18.1 % (10.0-50.0); Mean Corpuscular Hemoglobin 31.4 pg (28.0-32.0); Mean Corpuscular Hgb Conc. 34.9 g/dL (32.0-36.0); Mean Corpuscular Volume 90.1 fL (80.0-100.0); Monocytes # (auto) 0.9 10 ^3/uL (0-1.3); Monocytes % (auto) 10.3 % (0.0-12.0); Neutrophils # (auto) 6.1 10 ^3/uL (1.6-8.6); Neutrophils % (auto) 68.4 % (37.0-80.0); Platelet Count (auto) 297 10^3/uL (140-450); Red Blood Cells 3.94 10^6/uL (4.5-5.90); Red Cell Distribution Width 13.2 % (11.8-14.3); White Blood Cell 8.9 10^3/uL (4.4-10.8)
[2024-12-18 07:03] LABS: Alkaline Phosphatase 69 U/L (46-116); Anion Gap 9 (5-15); BUN/Creatinine Ratio 21.7 (10.0-20.0); Blood Urea Nitrogen 23 mg/dL (9-23); Carbon Dioxide 25 mmol/L (20-31); Chloride 106 mmol/L (98-107); Sodium 140 mmol/L (136-145)
[2024-12-18 07:04] LABS: Albumin 3.6 g/dL (3.2-4.8); Aspartate Aminotransferase 28 U/L (13-40); Bilirubin, Total 0.4 mg/dL (0.2-1.0)
[2024-12-18 07:05] LABS: Calcium 9.4 mg/dL (8.7-10.4)
[2024-12-18 07:06] LABS: Alanine Aminotransferase 9 U/L (7-40); Glucose 107 mg/dL (74-106); Potassium 3.4 mmol/L (3.5-5.1)
--- NOTE | 2024-12-18 09:00 | DVHPN2 ---
Progress Note - Dictate Date Seen: December 17, 2024 Medical Necessity Reason Pt with a Central, PICC or Fol: No Subjective PT WITH COUGH SOB SS COMPLEX CONSISTENT WITH UPPER RESP TRACT INFECTION TRACHEOBRONCHITIS TROPONIN NEGATIVE ECHO EF >60% LEUKOCYTOSIS WITH LEFT SHIFT vital signs Vital Sign Date Time Temp Pulse Resp B/P (MAP) Pulse Ox O2 Delivery O2 Flow Rate FiO2 12/18/24 08:00 68 18 98 Room Air* 0 21 12/18/24 05:00 97.3 121/85 (97) 97.3 Total Intake and Output 12/17/24 12/17/24 12/18/24 15:00 23:00 07:00 Intake Total 1100 ml 280 ml Balance 1100 ml 280 ml medications Current Medications Medications Dose Ordered Sig/Chris Route Start Time Stop Time Status Last Admin Dose Admin Sodium Chloride 10 ml Q8HR IV 12/15/24 22:00 12/18/24 06:00 10 ML Docusate Sodium 100 mg BIDPRN PRN PO 12/15/24 20:15 Acetaminophen 650 mg Q6HP PRN PO 12/15/24 20:15 12/16/24 13:23 650 MG Acetaminophen/ Hydrocodone Bitart 1 tab Q4HP PRN PO 12/15/24 20:15 12/18/24 06:17 1 TAB Hydromorphone HCl 0.5 mg Q4HP PRN IV 12/15/24 20:15 Ondansetron HCl 4 mg Q4HP PRN IV 12/15/24 20:15 Enoxaparin Sodium 40 mg DAILY SC 12/16/24 10:00 12/18/24 08:17 40 MG Nitroglycerin 0.4 mg Q5MINP PRN SL 12/15/24 20:15 Morphine Sulfate 2 mg Q30M PRN IV 12/15/24 20:15 Allopurinol 100 mg DAILY PO 12/16/24 10:00 12/18/24 08:17 100 MG Atorvastatin Calcium 40 mg HS PO 12/15/24 22:00 12/17/24 22:06 40 MG Clopidogrel Bisulfate 75 mg DAILY PO 12/16/24 10:00 12/18/24 08:17 75 MG Fludrocortisone Acetate 0.1 mg BID PO 12/15/24 22:00 12/18/24 08:17 0.1 MG Citalopram Hydrobromide 20 mg DAILY PO 12/16/24 10:00 12/18/24 08:17 20 MG Patient Own Medication 2.5 mg BID PO 12/15/24 22:00 Hold Diagnostic Test (Pha) 1 strip ACHS 12/16/24 17:00 12/18/24 06:17 1 STRIP Insulin Human Regular ACHS SC 12/16/24 17:00 Dextrose 50 ml UD PRN IV 12/16/24 12:30 Doxycycline Hyclate 100 ml @ 50 mls/hr Q12H IV 12/16/24 12:30 12/18/24 00:30 50 MLS/HR Carbidopa/Levodopa 1.5 tab TID PO 12/16/24 14:00 12/18/24 06:07 1.5 TAB laboratory and microbiology Laboratory Tests 12/18/24 05:34 Test 12/18/24 05:34 Range/Units Serum Glucose 107 H 74-106 mg/dL Problem List COUGH SOB SS COMPLEX CONSISTENT WITH UPPER RESP TRACT INFECTION TRACHEOBRONCHITIS TROPONIN NEGATIVE ECHO EF >60% LEUKOCYTOSIS WITH LEFT SHIFT Assessment/Plan ABX STEROIDS MAY DC HOME IN 1 TO 2 DAYS Plan discussed with: Patient RICHI OATES MD December 18, 2024 09:00
--- NOTE | 2024-12-18 09:16 | DVHPN2 ---
Subjective He is still complaining of cough although it is getting better Changes from previous H/P or p: Changes Objective Vitals Vital Signs Date Time Temp Pulse Resp B/P (MAP) Pulse Ox O2 Delivery O2 Flow Rate FiO2 12/18/24 08:00 68 18 98 Room Air* 0 21 12/18/24 05:00 97.3 121/85 (97) 97.3 Intake/Output Intake and Output 12/18/24 07:00 Intake Total 1380 ml Balance 1380 ml Intake Oral 1380 ml # Voids 6 General Appearance: Alert, Oriented X3, Cooperative Lungs: Clear to auscultation, Normal air movement Cardiovascular: Regular rate, Normal S1, Normal S2 Abdomen: Normal bowel sounds, Soft, No tenderness Extremities: No edema Medications Current Medications Medications Dose Ordered Sig/Chris Route Start Time Stop Time Status Last Admin Dose Admin Sodium Chloride 10 ml Q8HR IV 12/15/24 22:00 12/18/24 06:00 10 ML Docusate Sodium 100 mg BIDPRN PRN PO 12/15/24 20:15 Acetaminophen 650 mg Q6HP PRN PO 12/15/24 20:15 12/16/24 13:23 650 MG Acetaminophen/ Hydrocodone Bitart 1 tab Q4HP PRN PO 12/15/24 20:15 12/18/24 06:17 1 TAB Hydromorphone HCl 0.5 mg Q4HP PRN IV 12/15/24 20:15 Ondansetron HCl 4 mg Q4HP PRN IV 12/15/24 20:15 Enoxaparin Sodium 40 mg DAILY SC 12/16/24 10:00 12/18/24 08:17 40 MG Nitroglycerin 0.4 mg Q5MINP PRN SL 12/15/24 20:15 Morphine Sulfate 2 mg Q30M PRN IV 12/15/24 20:15 Allopurinol 100 mg DAILY PO 12/16/24 10:00 12/18/24 08:17 100 MG Atorvastatin Calcium 40 mg HS PO 12/15/24 22:00 12/17/24 22:06 40 MG Clopidogrel Bisulfate 75 mg DAILY PO 12/16/24 10:00 12/18/24 08:17 75 MG Fludrocortisone Acetate 0.1 mg BID PO 12/15/24 22:00 12/18/24 08:17 0.1 MG Citalopram Hydrobromide 20 mg DAILY PO 12/16/24 10:00 12/18/24 08:17 20 MG Patient Own Medication 2.5 mg BID PO 12/15/24 22:00 Hold Diagnostic Test (Pha) 1 strip ACHS 12/16/24 17:00 12/18/24 06:17 1 STRIP Insulin Human Regular ACHS SC 12/16/24 17:00 Dextrose 50 ml UD PRN IV 12/16/24 12:30 Doxycycline Hyclate 100 ml @ 50 mls/hr Q12H IV 12/16/24 12:30 12/18/24 00:30 50 MLS/HR Carbidopa/Levodopa 1.5 tab TID PO 12/16/24 14:00 12/18/24 06:07 1.5 TAB Laboratory Results Laboratory Tests 12/18/24 05:34 Chemistry Test 12/18/24 05:34 Albumin 3.6 g/dL (3.2-4.8) Calcium Level 9.4 mg/dL (8.7-10.4) Total Protein 6.0 g/dL (5.7-8.2) LFT Test 12/18/24 05:34 Alanine Aminotransferase (ALT) 9 U/L (7-40) Alkaline Phosphatase 69 U/L (46-116) Aspartate Amino Transferase (AST) 28 U/L (13-40) Total Bilirubin 0.4 mg/dL (0.2-1.0) Assessment/Plan Assessment/Plan Chest pain Acute bronchitis Hypertension Type 2 diabetes Gout Parkinson's disease Plan The patient takes Plavix and Xarelto at home, continue Start doxycycline IV for acute bronchitis Consult cardiology Cardiac diet Accu-Cheks to control his diabetes Full code Monitor closely Advance directives discussed for 22 minutes Resume the home medications 12/17/2024: Continue current management with IV doxycycline Oxygen as needed Consult cardiology Monitor the patient closely Resume the home medications 12/18/2024: Continue IV doxycycline Oxygen as needed Med neb treatments Hypokalemia: Replace potassium p.o. Consult Cardiology Dr. Muro Monitor closely Plan discussed with: Patient My Orders Orders - BARRIE CARVALHO MD Procedure Category Date Status Time Basic Metabolic Panel LAB 12/19/24 Verified 04:00 Magnesium LAB 12/19/24 Verified 04:00 Potassium Er Tablet PHA 5/27/25 Verified (Klor-Con Tablet) 09:15 Date of Service: December 18, 2024 Billing Provider: BARRIE CARVALHO MD Common Visit Codes: [id number] INP/OBS CARE(HIGH) BARRIE CARVALHO MD December 18, 2024 09:16
[2024-12-18] MEDS: POTASSIUM CHL 20 Meq TABLET PO ONE (12:50)
--- NOTE | 2024-12-18 13:12 | ECG ---
[facility] Test Date: 2024-12-15 Test Time: 13:36:52 Pat Name: JESS LLANES Department: ER Room: 0245T A Gender: M Client Services Director: JARROD : 1940 Requested By: NIRAV POST Order Number: [id number] Reading MD: Tiago Hughes Measurements Intervals [place] Rate: 77 P: 0 IN: 169 QRS: 105 QRSD: 96 T: -35 QT: 398 QTc: 451 Interpretive Statements Atrial-paced complexes Right axis deviation Nonspecific repol abnormality, diffuse leads Baseline wander in lead(s) I,II,aVR Electronically Signed On 12-23-2024 21:37:39 PDT by Tiago Hughes Please click the below link to view image of tracing.
[2024-12-19 01:00] VITALS: BP 133/84; PULSE 75; RESP 18; TEMP 98.7; O2SAT 98
[2024-12-19 05:00] VITALS: BP 106/73; PULSE 78; RESP 18; TEMP 97.9; O2SAT 97
[2024-12-19 06:17] LABS: Basophils # (auto) 0 10 ^3/uL (0-0.2); Basophils % (auto) 0.4 % (0.0-2.0); Eosinophils # (auto) 0.4 10 ^3/uL (0-0.8); Eosinophils % (auto) 3.8 % (0.0-7.0); Hematocrit 35.3 % (41.0-53.0); Hemoglobin 12.5 g/dL (13.5-17.5); Lymphocytes # (auto) 1.8 10 ^3/uL (0.4-5.4); Lymphocytes % (auto) 17.6 % (10.0-50.0); Mean Corpuscular Hemoglobin 31.8 pg (28.0-32.0); Mean Corpuscular Hgb Conc. 35.3 g/dL (32.0-36.0); Mean Corpuscular Volume 90.1 fL (80.0-100.0); Monocytes % (auto) 10.2 % (0.0-12.0); Neutrophils # (auto) 6.9 10 ^3/uL (1.6-8.6); Platelet Count (auto) 297 10^3/uL (140-450); Red Blood Cells 3.92 10^6/uL (4.5-5.90); Red Cell Distribution Width 13.6 % (11.8-14.3); White Blood Cell 10.1 10^3/uL (4.4-10.8)
[2024-12-19 06:33] LABS: Alanine Aminotransferase 12 U/L (7-40); Albumin 3.5 g/dL (3.2-4.8); Alkaline Phosphatase 62 U/L (46-116); Anion Gap 8 (5-15); Aspartate Aminotransferase 29 U/L (13-40); BUN/Creatinine Ratio 22.6 (10.0-20.0); Carbon Dioxide 25 mmol/L (20-31); Chloride 106 mmol/L (98-107); Glucose 92 mg/dL (74-106); Magnesium 1.8 mg/dL (1.6-2.6); Potassium 3.8 mmol/L (3.5-5.1); Sodium 139 mmol/L (136-145); Total Protein 5.8 g/dL (5.7-8.2)
[2024-12-19 06:34] LABS: Bilirubin, Total 0.3 mg/dL (0.2-1.0); Blood Urea Nitrogen 24 mg/dL (9-23); Calcium 8.7 mg/dL (8.7-10.4)
[2024-12-19 08:00] VITALS: PULSE 78; RESP 16; O2SAT 98
[2024-12-19 09:00] VITALS: BP 114/73; PULSE 78; RESP 18; TEMP 97; O2SAT 98
[2024-12-19] MEDS ORDERED: AUG875T PO (10:30)
[2024-12-19] MEDS ORDERED: DOXY1CAP57 PO (10:30)
--- NOTE | 2024-12-19 10:33 | DVHDS2 ---
Discharge Summary Date of Admission December 15, 2024 at 20:02 Date of Discharge: December 19, 2024 Labs/Diagnostic Data: Laboratory Results Test 12/19/24 06:21 12/19/24 05:37 12/17/24 06:04 12/15/24 16:19 POC Glucose 86 mg/dl (70-106) White Blood Count 10.1 10^3/uL (4.4-10.8) Red Blood Count 3.92 10^6/uL (4.5-5.90) Hemoglobin 12.5 g/dL (13.5-17.5) Hematocrit 35.3 % (41.0-53.0) Mean Corpuscular Volume 90.1 fL (80.0-100.0) Mean Corpuscular Hemoglobin 31.8 pg (28.0-32.0) Mean Corpuscular Hemoglobin Concent 35.3 g/dL (32.0-36.0) Red Cell Distribution Width 13.6 % (11.8-14.3) Platelet Count 297 10^3/uL (140-450) Mean Platelet Volume 7.8 fL (6.9-10.8) Neutrophils (%) (Auto) 68.0 % (37.0-80.0) Lymphocytes (%) (Auto) 17.6 % (10.0-50.0) Monocytes (%) (Auto) 10.2 % (0.0-12.0) Eosinophils (%) (Auto) 3.8 % (0.0-7.0) Basophils (%) (Auto) 0.4 % (0.0-2.0) Neutrophils # (Auto) 6.9 10 ^3/uL (1.6-8.6) Lymphocytes # (Auto) 1.8 10 ^3/uL (0.4-5.4) Monocytes # (Auto) 1.0 10 ^3/uL (0-1.3) Eosinophils # (Auto) 0.4 10 ^3/uL (0-0.8) Basophils # (Auto) 0 10 ^3/uL (0-0.2) Nucleated Red Blood Cells 0.0 % Sodium Level 139 mmol/L (136-145) Potassium Level 3.8 mmol/L (3.5-5.1) Chloride Level 106 mmol/L (98-107) Carbon Dioxide Level 25 mmol/L (20-31) Anion Gap 8 (5-15) Blood Urea Nitrogen 24 mg/dL (9-23) Creatinine 1.06 mg/dL (0.700-1.30) Glomerular Filtration Rate Calc 70 mL/min (>90) BUN/Creatinine Ratio 22.6 (10.0-20.0) Serum Glucose 92 mg/dL (74-106) Calcium Level 8.7 mg/dL (8.7-10.4) Magnesium Level 1.8 mg/dL (1.6-2.6) Total Bilirubin 0.3 mg/dL (0.2-1.0) Aspartate Amino Transferase (AST) 29 U/L (13-40) Alanine Aminotransferase (ALT) 12 U/L (7-40) Alkaline Phosphatase 62 U/L (46-116) Total Protein 5.8 g/dL (5.7-8.2) Albumin 3.5 g/dL (3.2-4.8) Triglycerides Level 115 mg/dL (< 150) Cholesterol Level 106 mg/dL (< 200) LDL Cholesterol 70 mg/dL (< 100) HDL Cholesterol 24 mg/dL (40-59) Thyroid Stimulating Hormone (TSH) 0.05 uIU/mL (0.55-4.78) Troponin I High Sensitivity 10 ng/L (</=54) Other Laboratory Tests 12/19/24 05:37 Brief Hx & Hospital Course: Final diagnoses: Chest pain due to acute bronchitis Acute bronchitis Hypertension Type 2 diabetes Gout Parkinson's disease 83-year-old male who was admitted for cough and congestion and chest pain for 2 weeks He was treated with IV antibiotics here Troponins were negative EKG was negative Chest x-ray showed no pneumonia Overall he improved slowly and his cough is better now Examination still shows some crackles bilaterally at the bases Discharged home on Augmentin and doxycycline for 7 days Follow up with his primary care physician as soon as possible Resume the home medications Condition at Discharge: Stable Final Diagnosis/Problems List Chest pain due to acute bronchitis Acute bronchitis Hypertension Type 2 diabetes Gout Parkinson's disease Discharge Disposition: Home SNF Discharge Will this Physician continue t: No Discharge Instruct/Medications Diet: Consistent carbohydrate, Cardiac 2g Na,low cholest Activity: No Restrictions, As Tolerated Follow Up/Referral: PCP as soon as possible Medications: Augmentin and doxycycline for 7 days Resume home medication Discharge Statement: "Patient was advised to return to the ER or call 911 if any headaches, dizziness, shortness of breath, chest pain, abdominal pain, bleeding, fevers, or worsening of medical condition. Patient was counseled about treatment plan, medications, possible side effects, patientverbalized understanding. All questions were answered to the best of my ability. This discharge took greater then 30 minutes in planning, reviewing documentation, counseling the patient, and discussing with other team members." ASSESSMENT ASSESSMENT Assessment Chest pain due to acute bronchitis Acute bronchitis Hypertension Type 2 diabetes Gout Parkinson's disease Date of Service: December 19, 2024 Billing Provider: BARRIE CARVALHO MD Common Visit Codes: [id number] DISCH DAY >30min BARRIE CARVALHO MD December 19, 2024 10:34
--- NOTE | 2024-12-19 12:37 | DVHPN2 ---
Progress Note - Dictate Date Seen: December 18, 2024 Medical Necessity Reason Pt with a Central, PICC or Fol: No Subjective PT WITH COUGH SOB SS COMPLEX CONSISTENT WITH UPPER RESP TRACT INFECTION TRACHEOBRONCHITIS TROPONIN NEGATIVE ECHO EF >60% LEUKOCYTOSIS WITH LEFT SHIFT vital signs Vital Sign Date Time Temp Pulse Resp B/P (MAP) Pulse Ox O2 Delivery O2 Flow Rate FiO2 12/19/24 09:00 97.0 78 18 114/73 (87) 98 97.0 12/19/24 08:00 Room Air* 0 21 Total Intake and Output 12/18/24 12/18/24 12/19/24 15:00 23:00 07:00 Intake Total 480 ml 300 ml Output Total 275 ml Balance 480 ml 25 ml medications Current Medications Medications Dose Ordered Sig/Chris Route Start Time Stop Time Status Last Admin Dose Admin Sodium Chloride 10 ml Q8HR IV 12/15/24 22:00 12/19/24 06:26 10 ML Docusate Sodium 100 mg BIDPRN PRN PO 12/15/24 20:15 Acetaminophen 650 mg Q6HP PRN PO 12/15/24 20:15 12/16/24 13:23 650 MG Acetaminophen/ Hydrocodone Bitart 1 tab Q4HP PRN PO 12/15/24 20:15 12/19/24 02:16 1 TAB Hydromorphone HCl 0.5 mg Q4HP PRN IV 12/15/24 20:15 Ondansetron HCl 4 mg Q4HP PRN IV 12/15/24 20:15 Enoxaparin Sodium 40 mg DAILY SC 12/16/24 10:00 12/19/24 11:22 40 MG Nitroglycerin 0.4 mg Q5MINP PRN SL 12/15/24 20:15 Morphine Sulfate 2 mg Q30M PRN IV 12/15/24 20:15 Allopurinol 100 mg DAILY PO 12/16/24 10:00 12/19/24 11:21 100 MG Atorvastatin Calcium 40 mg HS PO 12/15/24 22:00 12/18/24 21:22 40 MG Clopidogrel Bisulfate 75 mg DAILY PO 12/16/24 10:00 12/19/24 11:21 75 MG Fludrocortisone Acetate 0.1 mg BID PO 12/15/24 22:00 12/19/24 11:21 0.1 MG Citalopram Hydrobromide 20 mg DAILY PO 12/16/24 10:00 12/19/24 11:21 20 MG Patient Own Medication 2.5 mg BID PO 12/15/24 22:00 Hold Diagnostic Test (Pha) 1 strip ACHS 12/16/24 17:00 12/19/24 11:36 1 STRIP Insulin Human Regular ACHS SC 12/16/24 17:00 Dextrose 50 ml UD PRN IV 12/16/24 12:30 Doxycycline Hyclate 100 ml @ 50 mls/hr Q12H IV 12/16/24 12:30 12/19/24 01:18 50 MLS/HR Carbidopa/Levodopa 1.5 tab TID PO 12/16/24 14:00 12/19/24 06:26 1.5 TAB laboratory and microbiology Laboratory Tests 12/19/24 05:37 Test 12/19/24 05:37 Range/Units Serum Glucose 92 74-106 mg/dL Problem List COUGH SOB SS COMPLEX CONSISTENT WITH UPPER RESP TRACT INFECTION TRACHEOBRONCHITIS TROPONIN NEGATIVE ECHO EF >60% LEUKOCYTOSIS WITH LEFT SHIFT Assessment/Plan ABX STEROIDS MAY DC HOME IN 1 TO 2 DAYS SIGNIFICANT IMPROVEMENT MAY DC HOME ON ABX ORAL WITH PREDNISONE Dietary Evaluation Review Comments: 1. Pt is 83 with Low level of lipid profile, recommednd D/C lipitor. 2. Glucerna PO 240ml BID for supplement Expected Outcomes/Goals: gradual wt gain Plan discussed with: Patient RICHI OATES MD December 19, 2024 12:37
[2024-12-19 13:00] VITALS: BP 119/82; PULSE 79; RESP 18; TEMP 97.5; O2SAT 98
== END 2024-12-19 14:25 | disposition home or self-care (01) | DRG 202 ==
LOC: ER 13:32 → OVERFLOW 20:02 → EAST 22:02 → TELE-EAST 12-17 19:28
PROVIDERS: ADMIT Internal Medicine Geriatric Medicine; ATTEND Internal Medicine Geriatric Medicine
DX: J20.9 Acute bronchitis, unspecified (principal); N17.0 Acute kidney failure with tubular necrosis; I25.110 Atherosclerotic heart disease of native coronary artery with unstable angina pectoris; N18.9 Chronic kidney disease, unspecified; I12.9 Hypertensive chronic kidney disease with stage 1 through stage 4 chronic kidney disease, or unspecified chronic kidney disease; M10.9 Gout, unspecified; G20.A1 Parkinson's disease without dyskinesia, without mention of fluctuations; E11.22 Type 2 diabetes mellitus with diabetic chronic kidney disease; Z79.84 Long term (current) use of oral hypoglycemic drugs; Z79.899 Other long term (current) drug therapy; Z90.49 Acquired absence of other specified parts of digestive tract; Z80.8 Family history of malignant neoplasm of other organs or systems; Z79.01 Long term (current) use of anticoagulants
CPT/HCPCS: 36415; 71045; 76775; 80048; 80053; 80061; 82962; 83735; 84443; 84484; 85025; 93005; 93306; 96365; 96372; 99291; G0378

== ENCOUNTER 2024-12-25 12:31 | Outpatient (CLI) | payer MEDICARE, OTHER ==
[~2024-12-25 12:31] MED LIST changes: +AUG875T PO; +DOXY1CAP57 PO
--- NOTE | 2024-12-25 13:03 | DVH ---
CHEST RADIOGRAPH Indication: SOB Technique: Frontal and lateral view of the chest was obtained Comparison: XY CHEST TWO VIEWS ROUTINE on DOS: 06/13/24, XY CHEST TWO VIEWS ROUTINE on DOS: 11/02/22, XY CHEST TWO VIEWS ROUTINE on DOS: 10/25/22 FINDINGS: Lines and Tubes: Left chest pacemaker Lungs: Clear Pleura: No effusion. No pneumothorax. Cardiomediastinal contours: Borderline cardiomegaly Bones: Unremarkable IMPRESSION: No evidence of acute disease.
== END 2024-12-25 17:00 | disposition home or self-care (01) ==
LOC: Rad HDHVI 12:31
PROVIDERS: ATTEND Internal Medicine Cardiovascular Disease
DX: R06.02 Shortness of breath (principal)
CPT/HCPCS: 71046

== ENCOUNTER → 2025-01-23 | Outpatient (CLI) | payer MEDICARE, OTHER ==
[~2025-01-23] VITALS: Ht 172.7 cm; Wt 58.1 kg
[~2025-01-23] MED LIST changes: +ADENOSINE 49 MG in GIVE UN-DILUTED 0 ML IV ONE; +ADENOSINE 90 MG/30 ML INJ IV ONE
== END | disposition home or self-care (01) ==
LOC: Rad HDHVI 10:00
PROVIDERS: ATTEND Internal Medicine Cardiovascular Disease
DX: I49.3 Ventricular premature depolarization (principal); R07.89 Other chest pain; I13.0 Hypertensive heart and chronic kidney disease with heart failure and stage 1 through stage 4 chronic kidney disease, or unspecified chronic kidney disease; E11.22 Type 2 diabetes mellitus with diabetic chronic kidney disease; N18.9 Chronic kidney disease, unspecified; I50.33 Acute on chronic diastolic (congestive) heart failure; I49.5 Sick sinus syndrome; I25.5 Ischemic cardiomyopathy; E78.00 Pure hypercholesterolemia, unspecified; R06.02 Shortness of breath; J44.9 Chronic obstructive pulmonary disease, unspecified; J84.9 Interstitial pulmonary disease, unspecified; Z95.0 Presence of cardiac pacemaker; Z82.49 Family history of ischemic heart disease and other diseases of the circulatory system
CPT/HCPCS: 78452; 93017; A9500; J0153

== ENCOUNTER 2025-03-04 13:17 | Outpatient (CLI) | payer MEDICARE, OTHER ==
[~2025-03-04 13:17] MED LIST changes: -ADENOSINE 49 MG in GIVE UN-DILUTED 0 ML IV ONE; -ADENOSINE 90 MG/30 ML INJ IV ONE
--- NOTE | 2025-03-04 14:00 | DVH ---
CT brain without contrast CLINICAL INDICATION: POST FALL FINDINGS: The study was performed in a multidetector scanner. This study performed taking axial image s from the skull base up to the vertex. Both brain and bone windows are photographed. Dose lowering techniques have been used including automated exposure control and adjustment of mA and /or KV according to patient size. No intraparenchymal or extra-axial hemorrhage. Cortical sulcal markings are prominent. No hydrocepha nasima. There is ex vacuo enlargement of the ventricles due to surrounding white matter volume loss. On bone windows no calvarial fractures. Mucosal polyps present in the paranasal sinuses IMPRESSION: 1. Atrophy. 2. No acute intracranial pathology Computed Tomographic Radiation Dosimetry Report: Total CTDI vol = 51.38mGy Total DLP = 822.04mGy-cm A ll CT scans at this medical facility are performed using dose modulation techniques as appropriate to a performed exam including the following: Automated exposure control was utilized; adjustment of the MA and/or KvP according to patient size; and use of iterative reconstruction technique.
== END 2025-03-04 17:00 | disposition home or self-care (01) ==
LOC: Rad HDHVI 13:17
PROVIDERS: ATTEND Internal Medicine Cardiovascular Disease
DX: G31.9 Degenerative disease of nervous system, unspecified (principal); G93.89 Other specified disorders of brain; J33.8 Other polyp of sinus
CPT/HCPCS: 70450

== ENCOUNTER 2025-03-13 12:32 | Outpatient (CLI) | payer MEDICARE, OTHER | END 2025-03-13 17:00 | disposition home or self-care (01) | LOC: Rad HDHVI 12:32 | PROVIDERS: ATTEND Internal Medicine Cardiovascular Disease | DX: I65.23 Occlusion and stenosis of bilateral carotid arteries (principal); I10 Essential (primary) hypertension; E78.5 Hyperlipidemia, unspecified | CPT/HCPCS: 93880 ==